=== PATIENT | male | born 1940 | race Caucasian/White ===

== ENCOUNTER → 2017-04-04 | Outpatient (CLI) | payer OTHER ==
[2017-04-04 13:23] LABS: ALT/SGPT 54 U/L (12-78); AST/SGOT 44 U/L (15-37); BLOOD UREA NITROGEN 14 mg/dl (7-18); BUN/CREATININE RATIO 16.5 (10-20); CALCIUM 9.3 mg/dl (8.5-10.1); CARBON DIOXIDE 29 mmol/L (21-32); CHLORIDE 107 mmol/L (98-107); CREATININE 0.82 mg/dl (0.60-1.40); GLUCOSE 96 mg/dl (70-99); POTASSIUM 3.9 mmol/L (3.5-5.1); SODIUM 143 mmol/L (136-145)
[2017-04-04 13:26] LABS: BASO % 0.6 %; BASO ABS # 0.04 K/uL (0-0.2); COMPLETE YES; EOS % 6.7 %; HEMATOCRIT 41.8 % (42-52); IG% 0.3 %; LYMPH ABS # 1.58 K/uL (1.2-3.4); MEAN CELL VOLUME 87.4 fL (80-100); MEAN CORPUSCULAR HEMOGLOBIN 27.8 pg (25-34); MEAN CORPUSCULAR HGB CONC 31.8 g/dl (32-36); MEAN PLATELET VOLUME 9.9 fL (7.4-10.4); MONO % 9.3 %; NEUT % 60.1 %; PLATELET COUNT 224 K/uL (130-400); RED BLOOD COUNT 4.78 M/uL (4.7-6.1); WHITE BLOOD COUNT 6.86 K/uL (4.8-10.8)
[2017-04-04 13:31] LABS: ALB/GLOB RATIO 0.9 (0.9-2); ALKALINE PHOSPHATASE 109 U/L (45-117); CHOLESTEROL 144 mg/dl (0-200); CHOLESTEROL/HDL RATIO 4.6; HDL CHOLESTEROL 31 mg/dl; LDL CHOLESTEROL CALCULATED 82 mg/dl; TRIGLYCERIDES 155 mg/dl (0-150); VERY LOW DENSITY LIPOPROT CALC 31 mg/dl
== END | disposition home or self-care (01) ==
LOC: C.LABMFLN 09:38
PROVIDERS: ATTEND Family Medicine
DX: I10 Essential (primary) hypertension (principal); E78.5 Hyperlipidemia, unspecified; E03.9 Hypothyroidism, unspecified

== ENCOUNTER 2017-07-10 23:26 | Inpatient (IN) | payer OTHER ==
[~2017-07-10] VITALS: Ht 167.6 cm; Wt 90.0 kg
--- NOTE | 2017-07-10 23:39 | EMERGENCY ROOM VISIT NOTE ---
History Report prepared by Scribe: Katelyn Singer Under the Supervision of: Dr. Oh Corrales D.O. First contact with patient: 23:24 Chief Complaint: ALTERED MENTAL STATUS Stated Complaint: ALTERED MENTAL STATUS History of Present Illness The patient is a 77 year old male who presents to the Emergency Room with complaints of altered mental status. This HPI is limited secondary to the patient's AMS. Per EMS, the patient has a history of Alzheimer. The patient has had a rapid progression of AMS recently. The patient heard loud noises and became combative. Source of History: EMS History Limited By: AMS Position: other (AMS) Quality: other (AMS) Review of Systems ROS is limited secondary to the patient's AMS. Past Medical & Surgical Medical Problems: (1) Advanced dementia (2) Delirium Current/Historical Medications Scheduled Aspirin (Aspirin Ec), 81 MG PO DAILY Atenolol (Tenormin), 25 MG PO DAILY Atorvastatin (Lipitor), 10 MG PO DAILY Clopidogrel (Plavix), 75 MG PO DAILY Fluoxetine (Prozac), 20 MG PO Q12 Levothyroxine Sodium (Levothyroxine Sodium), 1 TAB PO DAILY Memantine (Namenda), 10 MG PO Q12 Pantoprazole (Protonix), 40 MG PO DAILY Sennosides-Docusate Sodium (Senna Plus), 1 TAB PO HS Scheduled PRN Acetaminophen (Tylenol), 1 TAB PO Q4 PRN for UNDECIDED Docusate Sodium (Docusate Sodium), 1 CAP PO BID PRN for Constipation Lorazepam (Ativan), 0.5 MG PO Q6H PRN for Anxiety Tramadol (Ultram), 50 MG PO Q4H PRN for Pain Allergies Coded Allergies: No Known Allergies (Unverified , 07/11/17) Physical Exam Vital Signs Date Time Temp Pulse Resp B/P (MAP) Pulse Ox O2 Delivery O2 Flow Rate FiO2 07/11/17 00:46 72 159/99 07/11/17 00:22 99 Room Air 07/11/17 00:22 99 Room Air 07/11/17 00:14 71 07/10/17 23:40 36.8 78 16 165/98 96 Room Air 07/10/17 23:33 76 165/94 Physical Exam GENERAL: Awake, alert, well-appearing, in no distress HENT: Normocephalic, atraumatic. Oropharynx unremarkable. EYES: Normal conjunctiva. Sclera non-icteric. NECK: Supple. No nuchal rigidity. FROM. No JVD. RESPIRATORY: Clear to auscultation. CARDIAC: Regular rate, normal rhythm. Extremities warm and well perfused. Pulses equal. ABDOMEN: Soft, non-distended. No tenderness to palpation. No rebound or guarding. No masses. RECTAL: Deferred. MUSCULOSKELETAL: Chest examination reveals no tenderness. The back is symmetrical on inspection without obvious abnormality. There is no CVA tenderness to palpation. No joint edema. LOWER EXTREMITIES: Calves are equal size bilaterally and non-tender. No edema. No discoloration. NEURO: Normal sensorium. No sensory or motor deficits noted. SKIN: No rash or jaundice noted. Medical Decision & Procedures Laboratory Results 07/11/17 00:10 Red Blood Count 4.79, Mean Corpuscular Volume 84.3, Mean Corpuscular Hemoglobin 28.2, Mean Corpuscular Hemoglobin Concent 33.4, Mean Platelet Volume 9.6, Neutrophils (%) (Auto) 50.8, Lymphocytes (%) (Auto) 35.6, Monocytes (%) (Auto) 9.5, Eosinophils (%) (Auto) 3.4, Basophils (%) (Auto) 0.7, Neutrophils # (Auto) 3.86, Lymphocytes # (Auto) 2.70, Monocytes # (Auto) 0.72, Eosinophils # (Auto) 0.26, Basophils # (Auto) 0.05 07/11/17 00:10 Test 07/10/17 23:30 07/11/17 00:10 Urine Color YELLOW Urine Appearance CLEAR (CLEAR) Urine pH 6.0 (4.5-7.5) Urine Specific [place] 1.022 (1.000-1.030) Urine Protein NEG (NEG) Urine Glucose (UA) NEG (NEG) Urine Ketones NEG (NEG) Urine Occult Blood NEG (NEG) Urine Nitrite NEG (NEG) Urine Bilirubin NEG (NEG) Urine Urobilinogen NEG (NEG) Urine Leukocyte Esterase NEG (NEG) White Blood Count 7.59 K/uL (4.8-10.8) Red Blood Count 4.79 M/uL (4.7-6.1) Hemoglobin 13.5 g/dL (14.0-18.0) Hematocrit 40.4 % (42-52) Mean Corpuscular Volume 84.3 fL (80-100) Mean Corpuscular Hemoglobin 28.2 pg (25-34) Mean Corpuscular Hemoglobin Concent 33.4 g/dl (32-36) Platelet Count 200 K/uL (130-400) Mean Platelet Volume 9.6 fL (7.4-10.4) Neutrophils (%) (Auto) 50.8 % Lymphocytes (%) (Auto) 35.6 % Monocytes (%) (Auto) 9.5 % Eosinophils (%) (Auto) 3.4 % Basophils (%) (Auto) 0.7 % Neutrophils # (Auto) 3.86 K/uL (1.4-6.5) Lymphocytes # (Auto) 2.70 K/uL (1.2-3.4) Monocytes # (Auto) 0.72 K/uL (0.11-0.59) Eosinophils # (Auto) 0.26 K/uL (0-0.5) Basophils # (Auto) 0.05 K/uL (0-0.2) RDW Standard Deviation 43.4 fL (36.4-46.3) RDW Coefficient of Variation 14.0 % (11.5-14.5) Immature Granulocyte % (Auto) 0.0 % Immature Granulocyte # (Auto) 0.00 K/uL (0.00-0.02) Anion Gap 8.0 mmol/L (3-11) Est Creatinine Clear Calc Drug Dose 75.6 ml/min Estimated GFR () 96.9 Estimated GFR (Non- 83.6 BUN/Creatinine Ratio 21.5 (10-20) Calcium Level 9.2 mg/dl (8.5-10.1) Magnesium Level 2.1 mg/dl (1.8-2.4) Total Bilirubin 0.7 mg/dl (0.2-1) Direct Bilirubin 0.1 mg/dl (0-0.2) Aspartate Amino Transf (AST/SGOT) 25 U/L (15-37) Alanine Aminotransferase (ALT/SGPT) 32 U/L (12-78) Alkaline Phosphatase 113 U/L (45-117) Total Protein 8.4 gm/dl (6.4-8.2) Albumin 3.7 gm/dl (3.4-5.0) Laboratory results reviewed by me Medications Administered Medications (Trade) Dose Ordered Sig/Wilfrid Route Start Time Stop Time Status Last Admin Dose Admin Lorazepam (Ativan Inj) 1 mg NOW STAT IV 07/11/17 00:30 07/11/17 00:32 DC 07/11/17 00:36 1 MG ED Course 2324: The patient was evaluated in room A10. A complete history and physical exam was performed. 2336: I reevaluated the patient. Discussed results and discharge instructions. The patient is ready for discharge. 0140: [facility]. The patient will be evaluated by Dr. Hopper, Hospitalist for further evaluation. Medical Decision Differential diagnoses include but are not limited to; Dementia, UTI, viral syndrome, deconditioning. Patient is alert follows commands is not combative has no current alteration mental status is alert and oriented 4. Patient's urine just was negative so I do not suspect infection as an etiologies afebrile. Patient is in a dementia unit and will be returned for further care; the rehabilitation Center would not take the patient back, the patient was medically cleared for admission for likely placement at a dementia unit. Case was discussed with the hospitalist for admission Medication Reconcilliation Current Medication List: was personally reviewed by me Impression Primary Impression: Dementia Scribe Attestation The scribe's documentation has been prepared under my direction and personally reviewed by me in its entirety. I confirm that the note above accurately reflects all work, treatment, procedures, and medical decision making performed by me. Departure Information Dispostion Home / Self-Care Referrals Yessi Leyva M.D. (PCP) Patient Instructions Dementia, My [facility]
[2017-07-11 00:08] LABS: URINE APPEARANCE CLEAR (CLEAR); URINE BILIRUBIN NEG (NEG); URINE COLOR YELLOW; URINE NITRITE NEG (NEG); URINE SPECIFIC GRAVITY 1.022 (1.000-1.030); UROBILINOGEN NEG (NEG)
[2017-07-11 00:09] LABS: MANUAL MICROSCOPIC REQUIRED? NO; REVIEW REQ? NO
[2017-07-11 00:25] LABS: BASO % 0.7 %; BASO ABS # 0.05 K/uL (0-0.2); COMPLETE YES; EOS % 3.4 %; HEMATOCRIT 40.4 % (42-52); LYMPH % 35.6 %; MEAN CELL VOLUME 84.3 fL (80-100); MEAN CORPUSCULAR HEMOGLOBIN 28.2 pg (25-34); MEAN CORPUSCULAR HGB CONC 33.4 g/dl (32-36); MEAN PLATELET VOLUME 9.6 fL (7.4-10.4); MONO % 9.5 %; NEUT % 50.8 %; PLATELET COUNT 200 K/uL (130-400); RED BLOOD COUNT 4.79 M/uL (4.7-6.1); WHITE BLOOD COUNT 7.59 K/uL (4.8-10.8)
[2017-07-11] MEDS ORDERED: LORAZEPAM 2 MG/ML 1 ML VIAL IV STA (00:30)
[2017-07-11 00:42] LABS: BUN/CREATININE RATIO 21.5 (10-20); CALCIUM 9.2 mg/dl (8.5-10.1); CREATININE 0.86 mg/dl (0.60-1.40); MAGNESIUM 2.1 mg/dl (1.8-2.4); POTASSIUM 3.9 mmol/L (3.5-5.1)
[2017-07-11] MEDS ORDERED: FLUO20CA35 PO (00:54)
[2017-07-11] MEDS ORDERED: CLOP1TAB15 PO (00:54)
[2017-07-11] MEDS ORDERED: PANT40TA PO (00:54)
[2017-07-11] MEDS ORDERED: LEVO100T7 PO (00:54)
[2017-07-11] MEDS ORDERED: NMN10 PO (00:54)
[2017-07-11] MEDS ORDERED: ATEN-173 PO (00:54)
[2017-07-11] MEDS ORDERED: ATOR10TA82 PO (00:54)
[2017-07-11] MEDS ORDERED: ASPI81TA28 PO (00:54)
[2017-07-11] MEDS ORDERED: ACET-1256 PO (01:15)
[2017-07-11] MEDS ORDERED: TRAM-10 PO (01:15)
[2017-07-11] MEDS ORDERED: DOCU100C31 PO (01:15)
[2017-07-11] MEDS ORDERED: SENN1TAB65 PO (01:15)
[2017-07-11] MEDS ORDERED: LORA-741 PO (01:15)
[2017-07-11] MEDS ORDERED: ACETAMINOPHEN 325 MG TAB PO PRN (01:30)
[2017-07-11] MEDS ORDERED: TRAMADOL HCL 50 MG TAB PO PRN (01:30)
[2017-07-11] MEDS ORDERED: LORAZEPAM 0.5 MG TAB PO PRN (01:30)
[2017-07-11] MEDS ORDERED: ONDANSETRON INJ 2 MG/ML 2 ML VIAL IV PRN (01:30)
[2017-07-11] MEDS ORDERED: DOCUSATE SODIUM 100 MG CAP PO PRN (01:30)
[2017-07-11] MEDS ORDERED: HALOPERIDOL LACTATE 5 MG/ML 1 ML VIAL IM PRN (01:45)
[2017-07-11 03:11] VITALS: BP 172/98; PULSE 70; TEMP 36.6; O2SAT 92; Ht 167.6 cm; Wt 90.0 kg
[2017-07-11] MEDS ORDERED: IV FLUIDS COMPLETED PRN (03:30)
--- NOTE | 2017-07-11 03:55 | History and Physical ---
History & Physical Date & Time of Service: Jul 11, 2017 at 01:38 Chief Complaint: Altered Mental Status Primary Care Physician: Yessi Leyva M.D. History of Present Illness Source: patient, clinic records Mr Everett is a 77 year old male with Alzheimer's disease who presents to the ER from [facility] after becoming combative with staff. He was recently discharged from [facility] to [facility] with a primary diagnosis on discharge of advanced dementia. When seen the patient had been given Ativan in the ER as he was starting to becoming combative with staff. He was sleeping and unable to wake him up to provide a history. On review of outpatient records he has a diagnosis of Alzheimer's disease and was last nicanor by neurology in February 2017. At that time he was able to recall 2/3 objects in 5 minutes. He is and lives alone as her PCP note from November 2016 Past Medical/Surgical History Alzheimer's Dementia Atrial fibrillation Benign essential hypertension Coronary Artery Disease Hypothyroidism GERD Hyperlipidemia Obstructive Sleep apnea Social History Smoking Status: Never Smoker Marital Status: Housing status: lives alone Occupational Status: retired Allergies Coded Allergies: No Known Allergies (Unverified , 07/11/17) Home Medications Scheduled Aspirin (Aspirin Ec), 81 MG PO DAILY Atenolol (Tenormin), 25 MG PO DAILY Atorvastatin (Lipitor), 10 MG PO DAILY Clopidogrel (Plavix), 75 MG PO DAILY Fluoxetine (Prozac), 20 MG PO Q12 Levothyroxine Sodium (Levothyroxine Sodium), 1 TAB PO DAILY Memantine (Namenda), 10 MG PO Q12 Pantoprazole (Protonix), 40 MG PO DAILY Sennosides-Docusate Sodium (Senna Plus), 1 TAB PO HS Scheduled PRN Acetaminophen (Tylenol), 1 TAB PO Q4 PRN for UNDECIDED Docusate Sodium (Docusate Sodium), 1 CAP PO BID PRN for Constipation Lorazepam (Ativan), 0.5 MG PO Q6H PRN for Anxiety Tramadol (Ultram), 50 MG PO Q4H PRN for Pain Review of Systems Unable to review systems due to patient cognition Physical Exam Vital Signs Date Time Temp Pulse Resp B/P (MAP) Pulse Ox O2 Delivery O2 Flow Rate FiO2 07/11/17 00:46 72 159/99 07/11/17 00:22 99 Room Air 07/11/17 00:22 99 Room Air 07/11/17 00:14 71 07/10/17 23:40 36.8 78 16 165/98 96 Room Air 07/10/17 23:33 76 165/94 General Appearance: WD/WN, no apparent distress Head: normocephalic, atraumatic Eyes: normal inspection ENT: pharynx normal Respiratory/Chest: normal breath sounds, no respiratory distress, no accessory muscle use Cardiovascular: regular rate, rhythm, no murmur, normal peripheral pulses Abdomen/GI: normal bowel sounds, non tender, soft Extremities/Musculoskelatal: normal capillary refill, no pedal edema Neurologic/Psych: + pertinent finding (sleeping unable to wake, reportedly moving all 4 limbs equally and mobile before ativan, no facial droop) Skin: normal color, warm/dry, no rash Diagnostics Laboratory Results Results Past 24 Hours Test 07/10/17 23:30 07/11/17 00:10 Range/Units Urine Color YELLOW Urine Appearance CLEAR CLEAR Urine pH 6.0 4.5-7.5 Urine Specific [place] 1.022 1.000-1.030 Urine Protein NEG NEG Urine Glucose (UA) NEG NEG Urine Ketones NEG NEG Urine Occult Blood NEG NEG Urine Nitrite NEG NEG Urine Bilirubin NEG NEG Urine Urobilinogen NEG NEG Urine Leukocyte Esterase NEG NEG White Blood Count 7.59 4.8-10.8 K/uL Red Blood Count 4.79 4.7-6.1 M/uL Hemoglobin 13.5 14.0-18.0 g/dL Hematocrit 40.4 42-52 % Mean Corpuscular Volume 84.3 80-100 fL Mean Corpuscular Hemoglobin 28.2 25-34 pg Mean Corpuscular Hemoglobin Concent 33.4 32-36 g/dl Platelet Count 200 130-400 K/uL Mean Platelet Volume 9.6 7.4-10.4 fL Neutrophils (%) (Auto) 50.8 % Lymphocytes (%) (Auto) 35.6 % Monocytes (%) (Auto) 9.5 % Eosinophils (%) (Auto) 3.4 % Basophils (%) (Auto) 0.7 % Neutrophils # (Auto) 3.86 1.4-6.5 K/uL Lymphocytes # (Auto) 2.70 1.2-3.4 K/uL Monocytes # (Auto) 0.72 0.11-0.59 K/uL Eosinophils # (Auto) 0.26 0-0.5 K/uL Basophils # (Auto) 0.05 0-0.2 K/uL RDW Standard Deviation 43.4 36.4-46.3 fL RDW Coefficient of Variation 14.0 11.5-14.5 % Immature Granulocyte % (Auto) 0.0 % Immature Granulocyte # (Auto) 0.00 0.00-0.02 K/uL Sodium Level 137 136-145 mmol/L Potassium Level 3.9 3.5-5.1 mmol/L Chloride Level 104 98-107 mmol/L Carbon Dioxide Level 25 21-32 mmol/L Anion Gap 8.0 3-11 mmol/L Blood Urea Nitrogen 18 7-18 mg/dl Creatinine 0.86 0.60-1.40 mg/dl Est Creatinine Clear Calc Drug Dose 75.6 ml/min Estimated GFR () 96.9 Estimated GFR (Non- 83.6 BUN/Creatinine Ratio 21.5 10-20 Random Glucose 95 70-99 mg/dl Calcium Level 9.2 8.5-10.1 mg/dl Magnesium Level 2.1 1.8-2.4 mg/dl Total Bilirubin 0.7 0.2-1 mg/dl Direct Bilirubin 0.1 0-0.2 mg/dl Aspartate Amino Transf (AST/SGOT) 25 15-37 U/L Alanine Aminotransferase (ALT/SGPT) 32 12-78 U/L Alkaline Phosphatase 113 45-117 U/L Total Protein 8.4 6.4-8.2 gm/dl Albumin 3.7 3.4-5.0 gm/dl Impression Assessment and Plan 77 year old male with Alzheimer's admission for combative state after recent discharge from [facility] for advanced dementia. Delirium on background of advanced dementia - Haldol IM or PO PRN if patient at risk to self or others - notes requested from [place] - discharge planning to dementia unit Coronary artery disease - ASA, Clopidogrel, Atenolol, atorvastatin Alzheimer's disease - continue memantine Hypothyroidism - continue levothyroxine Depression - continue fluoxetine Resident Physician Supervision Note: I was present with Dr. Pena during the history and exam. I discussed the case with the resident and agree with the findings and plan as documented in the note. Any exceptions or clarifications are listed here: 77 y/o M Hx Alzheimer's dementia, CAD, hypothyroidism Pt was placed at [facility] one day prior, however, his behavior has been erratic and he was sent to the ER for relocation to an Alzheimer's unit. It is unclear why they had accepted him initialy as his histrory was documented prior to placement. OE Pt sedated at time of evaluation S1,2 R CTAB - poor effort NT, ND No CCE P: Case management consulted to explore placement options Cont current meds Documented By: Bonilla Hopper Level of Care Med/Surg Advanced Directives Existing Advance Directive: Yes (as per [facility]) Resuscitation Status FULL RESUSCITATION (as per [place] discharge notes) VTE Prophylaxis VTE Risk Assessment Done? Y/N: Yes Risk Level: Moderate Given or contraindicated: Treatment not indicated (social admission) Additional Copies To Yessi Leyva M.D. Resident Tracking Resident Involvement: Resident Care Provided Care Provided: Adult Hospital Medicine
[2017-07-11] MEDS: LEVOTHYROXINE 100 MCG TAB PO SCH (06:00)
--- NOTE | 2017-07-11 06:40 | Family Medicine Progress Note ---
Progress Note Date of Service Jul 11, 2017. Subjective Pt evaluation today including: chart review, lab review, review of inpatient medication list Unable to obtain a subjective history from the patient He is extremely sedated from the ativan that he received in the ED Does respond to pain Medications Medications Administered Medications (Trade) Dose Ordered Sig/Wilfrid Route Start Time Stop Time Status Last Admin Dose Admin Lorazepam (Ativan Inj) 1 mg NOW STAT IV 07/11/17 00:30 07/11/17 00:32 DC 07/11/17 00:36 1 MG Lorazepam (Ativan Tab) 0.5 mg Q6H PRN PO 07/11/17 01:30 08/10/17 01:29 07/11/17 06:19 0.5 MG Objective Physical Exam General Appearance: no apparent distress Eyes: normal inspection ENT: normal ENT inspection Neck: supple Respiratory/Chest: normal breath sounds, no respiratory distress, no accessory muscle use Cardiovascular: regular rate, rhythm, no murmur Abdomen: normal bowel sounds, non tender, soft Extremities: no pedal edema Neurologic/Psychiatric: + pertinent finding (sedated) Skin: normal color, warm/dry, no rash Lymphatic: no adenopathy Laboratory Results Results Past 24 Hours Test 07/10/17 23:30 07/11/17 00:10 07/11/17 06:45 Range/Units Urine Color YELLOW Urine Appearance CLEAR CLEAR Urine pH 6.0 4.5-7.5 Urine Specific [place] 1.022 1.000-1.030 Urine Protein NEG NEG Urine Glucose (UA) NEG NEG Urine Ketones NEG NEG Urine Occult Blood NEG NEG Urine Nitrite NEG NEG Urine Bilirubin NEG NEG Urine Urobilinogen NEG NEG Urine Leukocyte Esterase NEG NEG White Blood Count 7.59 4.8-10.8 K/uL Red Blood Count 4.79 4.7-6.1 M/uL Hemoglobin 13.5 14.0-18.0 g/dL Hematocrit 40.4 42-52 % Mean Corpuscular Volume 84.3 80-100 fL Mean Corpuscular Hemoglobin 28.2 25-34 pg Mean Corpuscular Hemoglobin Concent 33.4 32-36 g/dl Platelet Count 200 130-400 K/uL Mean Platelet Volume 9.6 7.4-10.4 fL Neutrophils (%) (Auto) 50.8 % Lymphocytes (%) (Auto) 35.6 % Monocytes (%) (Auto) 9.5 % Eosinophils (%) (Auto) 3.4 % Basophils (%) (Auto) 0.7 % Neutrophils # (Auto) 3.86 1.4-6.5 K/uL Lymphocytes # (Auto) 2.70 1.2-3.4 K/uL Monocytes # (Auto) 0.72 0.11-0.59 K/uL Eosinophils # (Auto) 0.26 0-0.5 K/uL Basophils # (Auto) 0.05 0-0.2 K/uL RDW Standard Deviation 43.4 36.4-46.3 fL RDW Coefficient of Variation 14.0 11.5-14.5 % Immature Granulocyte % (Auto) 0.0 % Immature Granulocyte # (Auto) 0.00 0.00-0.02 K/uL Sodium Level 137 136-145 mmol/L Potassium Level 3.9 3.5-5.1 mmol/L Chloride Level 104 98-107 mmol/L Carbon Dioxide Level 25 21-32 mmol/L Anion Gap 8.0 3-11 mmol/L Blood Urea Nitrogen 18 7-18 mg/dl Creatinine 0.86 0.60-1.40 mg/dl Est Creatinine Clear Calc Drug Dose 75.6 ml/min Estimated GFR () 96.9 Estimated GFR (Non- 83.6 BUN/Creatinine Ratio 21.5 10-20 Random Glucose 95 70-99 mg/dl Calcium Level 9.2 8.5-10.1 mg/dl Magnesium Level 2.1 2.1 1.8-2.4 mg/dl Total Bilirubin 0.7 0.2-1 mg/dl Direct Bilirubin 0.1 0-0.2 mg/dl Aspartate Amino Transf (AST/SGOT) 25 15-37 U/L Alanine Aminotransferase (ALT/SGPT) 32 12-78 U/L Alkaline Phosphatase 113 45-117 U/L Total Protein 8.4 6.4-8.2 gm/dl Albumin 3.7 3.4-5.0 gm/dl Thyroid Stimulating Hormone (TSH) 4.320 0.300-4.500 uIu/ml Assessment and Plan 77 year old male with Alzheimer's admission for combative state after recent discharge from [facility] for advanced dementia. The patient is currently awaiting placement in a dementia unit Delirium secondary to Advanced Dementia; Alzheimer's - Haldol IM or PO PRN if patient at risk to self or others - Preference to use 0.5 mg Risperdal prior to the - notes requested from [facility], pending - discharge planning to dementia unit, case management aware - continue Memantine HTN - continue atenolol 25 mg - Hdralazine 5 mg q 6 h prn for systolic > 180 Coronary artery disease- stable - ASA, Clopidogrel, Atenolol, atorvastatin 10 mg cont'd Hypothyroidism - continue levothyroxine 100 mcg - TSH repeat to assess if under/ over treatment could be contributing to delirium Depression - continue fluoxetine 20 mg bid DVT prophylaxis heparin bid scd Continued [facility] stay due to: other Discharge planning: jail facility Assessment/Plan Resident Physician Supervision Note: I was present with Dr. Rea during the history and exam. I discussed the case with the resident and agree with the findings and plan as documented in the note. Any exceptions or clarifications are listed here. 77 y/o male with h/o Alzheimer's dementia who was functionally dependent until last week presents with acute decompensation of mental status from [facility] following inpatient stay at [facility]. Presently AAOx0 but answering questions appropriately in the moment. Reports no pain, sensory changes, alimentary complaints or rashes, fevers. S1/S2 nl RRR no MCG, CTAB. For delirium, the patient is likely still recovering from recent lorazepam bolus but should remain under assist with frequent reorientation and monitoring until baseline mental status returns. Can use haldol if significant disturbance. Would obtain records of w/u of this from previous hospitalization. Regarding elevated BP, would continue PO atenolol and consider addition of PEDRO- I if no improvement. Maintain PO medications for chronic disease as noted above.
[2017-07-11 06:57] VITALS: BP 214/100; PULSE 66; TEMP 36.4; O2SAT 98
[2017-07-11] MEDS ORDERED: HydrALAZINE HCL 20 MG/ML VIAL ONE (07:08)
[2017-07-11] MEDS ORDERED: HydrALAZINE HCL 20 MG/ML VIAL IV. PRN (07:15)
[2017-07-11 07:51] LABS: MAGNESIUM 2.1 mg/dl (1.8-2.4); THYROID STIMULATING HORMONE 4.32 uIu/ml (0.300-4.500)
[2017-07-11] MEDS ORDERED: FLUOXETINE HCL 20 MG CAP PO SCH (09:00)
[2017-07-11] MEDS: ASPIRIN 81 MG ECTAB PO SCH (09:00)
[2017-07-11] MEDS: MEMANTINE 10 MG TAB PO SCH ×2 (09:02→21:03)
[2017-07-11] MEDS: PANTOprazole SOD 40 MG TAB PO SCH (09:04)
[2017-07-11] MEDS: CLOPIDOGREL BISULFATE 75 MG TAB PO SCH (09:04)
[2017-07-11] MEDS: ATORVASTATIN 10 MG TAB PO SCH (09:04)
[2017-07-11 09:09] VITALS: BP 174/90
[2017-07-11 10:15] VITALS: BP 137/92
[2017-07-11 13:46] LABS: PROTHROMBIN TIME (PATIENT) 10.9 SECONDS (9.0-12.0)
[2017-07-11 15:01] VITALS: BP 147/75; PULSE 67; TEMP 36.5; O2SAT 93
[2017-07-11] MEDS: RISPERIDONE 0.5 MG TAB PO PRN (20:14)
[2017-07-11] MEDS: HEPARIN SOD 5000 UNIT/0.5 ML CARP SQ SCH (21:00)
[2017-07-11] MEDS: DOCUSATE SODIUM/SENNA 50/8.6MG TAB PO SCH (21:00)
[2017-07-11 23:40] VITALS: BP 142/84; PULSE 78; TEMP 36.8; O2SAT 95
[2017-07-12] MEDS: LEVOTHYROXINE 100 MCG TAB PO SCH (05:58)
--- NOTE | 2017-07-12 07:29 | Family Medicine Progress Note ---
Progress Note Date of Service Jul 12, 2017. Subjective Pt evaluation today including: conversation w/ patient, physical exam, chart review, lab review, review of studies Additional Comments: unable to obtain ROS due to pt mental status Medications Current Inpatient Medications Medications (Trade) Dose Ordered Sig/Wilfrid Route Start Time Stop Time Status Last Admin Dose Admin Acetaminophen (Tylenol Tab) 650 mg Q4H PRN PO 07/11/17 01:30 08/10/17 01:29 Ondansetron HCl (Zofran Inj) 4 mg Q6H PRN IV 07/11/17 01:30 08/10/17 01:29 Aspirin (Ecotrin Tab) 81 mg DAILY PO 07/11/17 09:00 08/10/17 08:59 07/11/17 09:00 81 MG Atenolol (Tenormin Tab) 25 mg DAILY PO 07/11/17 09:00 08/10/17 08:59 07/11/17 09:02 25 MG Atorvastatin Calcium (Lipitor Tab) 10 mg DAILY PO 07/11/17 09:00 08/10/17 08:59 07/11/17 09:04 10 MG Clopidogrel Bisulfate (plAVix TAB) 75 mg DAILY PO 07/11/17 09:00 08/10/17 08:59 07/11/17 09:04 75 MG Docusate Sodium (coLACE CAP) 100 mg BID PRN PO 07/11/17 01:30 08/10/17 01:29 Levothyroxine Sodium (Synthroid Tab) 100 mcg DAILYBB PO 07/11/17 06:00 08/10/17 05:59 07/12/17 05:58 100 MCG Lorazepam (Ativan Tab) 0.5 mg Q6H PRN PO 07/11/17 01:30 08/10/17 01:29 Future Hold 07/11/17 06:19 0.5 MG Memantine (Namenda Tab) 10 mg Q12 PO 07/11/17 09:00 08/10/17 08:59 07/11/17 21:03 10 MG Pantoprazole Sodium (Protonix Tab) 40 mg DAILY PO 07/11/17 09:00 08/10/17 08:59 07/11/17 09:04 40 MG Senna/Docusate Sodium (Senokot S Tab) 1 tab HS PO 07/11/17 21:00 08/10/17 20:59 Tramadol HCl (Ultram Tab) 50 mg Q4H PRN PO 07/11/17 01:30 08/10/17 01:29 Haloperidol Lactate (Haldol Inj) 2.5 mg DAILY PRN IM 07/11/17 01:45 08/10/17 01:44 Haloperidol (Haldol Tab) 1 mg DAILY PRN PO 07/11/17 01:45 08/10/17 01:44 Miscellaneous (Iv Fluids Completed) 1 ea PRN PRN N/A 07/11/17 03:30 07/11/18 03:29 Hydralazine HCl (HydrALAZINE INJ) 5 mg Q6H PRN IV. 07/11/17 07:15 08/10/17 07:14 Risperidone (Risperdal Tab) 0.5 mg DAILY PRN PO 07/11/17 12:00 08/10/17 11:59 07/11/17 20:14 0.5 MG Heparin Sodium (Porcine) (Heparin Sq 5000 Unit/0.5ml) 5,000 unit Q12 SQ 07/11/17 21:00 08/10/17 20:59 Fluoxetine HCl (Prozac Cap) 20 mg DAILY PO 07/12/17 09:00 08/10/17 08:59 Objective Vital Signs Date Time Temp Pulse Resp B/P (MAP) Pulse Ox O2 Delivery O2 Flow Rate FiO2 07/11/17 23:40 36.8 78 22 142/84 (103) 95 Room Air 07/11/17 23:21 Room Air 07/11/17 16:20 Room Air 07/11/17 15:01 36.5 67 18 147/75 (99) 93 Room Air 07/11/17 10:15 137/92 (107) 07/11/17 09:09 174/90 (118) Physical Exam General Appearance: WD/WN, no apparent distress Respiratory/Chest: chest non-tender, lungs clear, normal breath sounds, no respiratory distress, no accessory muscle use Cardiovascular: regular rate, rhythm, no edema, no gallop, no JVD, no murmur Abdomen: normal bowel sounds, non tender, soft, no organomegaly Skin: normal color, warm/dry, no rash Laboratory Results Test 07/11/17 13:20 07/12/17 04:44 Prothrombin Time 10.9 SECONDS (9.0-12.0) Prothromb Time International Ratio 1.0 (0.9-1.1) Assessment and Plan 77 year old male with Alzheimer's admission for combative state after recent discharge from [facility] for advanced dementia. The patient is currently awaiting placement in a dementia unit Delirium secondary to Advanced Dementia; Alzheimer's - Haldol IM or PO PRN if patient at risk to self or others - Preference to use 0.5 mg Risperdal prior to the - notes requested from [place] [facility], pending - discharge planning to dementia unit, case management aware - continue Memantine HTN - continue atenolol 25 mg - Hdralazine 5 mg q 6 h prn for systolic > 180 Coronary artery disease- stable - ASA, Clopidogrel, Atenolol, atorvastatin 10 mg cont'd Hypothyroidism - continue levothyroxine 100 mcg - TSH repeat to assess if under/ over treatment could be contributing to delirium Depression - continue fluoxetine 20 mg bid DVT prophylaxis heparin bid scd Continued [facility] stay due to: other Discharge planning: snf facility Assessment/Plan Resident Physician Supervision Note: I was present with Dr. Shaw during the history and exam. I discussed the case with the resident and agree with the findings and plan as documented in the note. Any exceptions or clarifications are listed here. 77 y/o male with h/o Alzheimer's dementia who was functionally dependent until last week presents with acute decompensation of mental status from [facility] following inpatient stay at [facility]. AAOx0 and physically agitated without aggression, confused about location and time. Reports no pain, sensory changes, alimentary complaints or rashes, fevers. S1/S2 nl RRR no MCG, CTAB. Pt would definitely benefit from 1:1 with frequent reorientation and monitoring , with haldol if there is significant disturbance. Elevated BP has improved and so will continue atenolol. Maintain PO medications for chronic disease as noted above. Awaiting placement to outpatient facility, needs 3 MN, despite recent admit to [facility]
[2017-07-12 07:37] VITALS: BP 149/92; PULSE 76; TEMP 36.7; O2SAT 94
[2017-07-12 08:23] LABS: BASO % 0.7 %; BASO ABS # 0.05 K/uL (0-0.2); COMPLETE YES; EOS % 3.6 %; HEMATOCRIT 40.3 % (42-52); IG% 0.3 %; LYMPH % 24.5 %; LYMPH ABS # 1.88 K/uL (1.2-3.4); MEAN CELL VOLUME 84.7 fL (80-100); MEAN CORPUSCULAR HEMOGLOBIN 28.4 pg (25-34); MEAN CORPUSCULAR HGB CONC 33.5 g/dl (32-36); MEAN PLATELET VOLUME 9.8 fL (7.4-10.4); MONO % 7.7 %; NEUT % 63.2 %; PLATELET COUNT 189 K/uL (130-400); RED BLOOD COUNT 4.76 M/uL (4.7-6.1); WHITE BLOOD COUNT 7.68 K/uL (4.8-10.8)
[2017-07-12] MEDS: RISPERIDONE 0.5 MG TAB PO PRN (08:33)
[2017-07-12 08:59] LABS: BUN/CREATININE RATIO 19.6 (10-20); CALCIUM 9.5 mg/dl (8.5-10.1); CREATININE 0.8 mg/dl (0.60-1.40); POTASSIUM 3.8 mmol/L (3.5-5.1)
[2017-07-12] MEDS: HEPARIN SOD 5000 UNIT/0.5 ML CARP SQ SCH ×2 (09:00→21:00)
[2017-07-12] MEDS: ASPIRIN 81 MG ECTAB PO SCH (09:23)
[2017-07-12] MEDS: MEMANTINE 10 MG TAB PO SCH ×2 (09:24→20:59)
[2017-07-12] MEDS: PANTOprazole SOD 40 MG TAB PO SCH (09:29)
[2017-07-12] MEDS: FLUOXETINE HCL 20 MG CAP PO SCH (09:30)
[2017-07-12] MEDS: CLOPIDOGREL BISULFATE 75 MG TAB PO SCH (11:50)
[2017-07-12] MEDS: ATORVASTATIN 10 MG TAB PO SCH (11:51)
[2017-07-12 14:54] VITALS: BP 113/75; PULSE 70; TEMP 36.7; O2SAT 94
[2017-07-12] MEDS: DOCUSATE SODIUM/SENNA 50/8.6MG TAB PO SCH (21:00)
[2017-07-12 22:52] VITALS: BP 164/89; PULSE 62; TEMP 36.4; O2SAT 93
--- NOTE | 2017-07-13 08:02 | Family Medicine Progress Note ---
Progress Note Date of Service Jul 13, 2017. Subjective Additional Comments: unable to obtain pt's ROS due to mental status Medications Current Inpatient Medications Medications (Trade) Dose Ordered Sig/Wilfrid Route Start Time Stop Time Status Last Admin Dose Admin Acetaminophen (Tylenol Tab) 650 mg Q4H PRN PO 07/11/17 01:30 08/10/17 01:29 Ondansetron HCl (Zofran Inj) 4 mg Q6H PRN IV 07/11/17 01:30 08/10/17 01:29 Aspirin (Ecotrin Tab) 81 mg DAILY PO 07/11/17 09:00 08/10/17 08:59 07/13/17 08:39 81 MG Atenolol (Tenormin Tab) 25 mg DAILY PO 07/11/17 09:00 08/10/17 08:59 07/13/17 08:40 25 MG Atorvastatin Calcium (Lipitor Tab) 10 mg DAILY PO 07/11/17 09:00 08/10/17 08:59 07/13/17 08:39 10 MG Clopidogrel Bisulfate (plAVix TAB) 75 mg DAILY PO 07/11/17 09:00 08/10/17 08:59 07/13/17 08:39 75 MG Docusate Sodium (coLACE CAP) 100 mg BID PRN PO 07/11/17 01:30 08/10/17 01:29 Levothyroxine Sodium (Synthroid Tab) 100 mcg DAILYBB PO 07/11/17 06:00 08/10/17 05:59 07/13/17 11:18 100 MCG Lorazepam (Ativan Tab) 0.5 mg Q6H PRN PO 07/11/17 01:30 08/10/17 01:29 Future Hold 07/11/17 06:19 0.5 MG Memantine (Namenda Tab) 10 mg Q12 PO 07/11/17 09:00 08/10/17 08:59 07/13/17 08:39 10 MG Pantoprazole Sodium (Protonix Tab) 40 mg DAILY PO 07/11/17 09:00 08/10/17 08:59 07/13/17 08:40 40 MG Senna/Docusate Sodium (Senokot S Tab) 1 tab HS PO 07/11/17 21:00 08/10/17 20:59 Tramadol HCl (Ultram Tab) 50 mg Q4H PRN PO 07/11/17 01:30 08/10/17 01:29 Haloperidol Lactate (Haldol Inj) 2.5 mg DAILY PRN IM 07/11/17 01:45 08/10/17 01:44 Haloperidol (Haldol Tab) 1 mg DAILY PRN PO 07/11/17 01:45 08/10/17 01:44 Miscellaneous (Iv Fluids Completed) 1 ea PRN PRN N/A 07/11/17 03:30 07/11/18 03:29 Hydralazine HCl (HydrALAZINE INJ) 5 mg Q6H PRN IV. 07/11/17 07:15 08/10/17 07:14 Risperidone (Risperdal Tab) 0.5 mg DAILY PRN PO 07/11/17 12:00 08/10/17 11:59 07/13/17 16:27 0.5 MG Heparin Sodium (Porcine) (Heparin Sq 5000 Unit/0.5ml) 5,000 unit Q12 SQ 07/11/17 21:00 08/10/17 20:59 Fluoxetine HCl (Prozac Cap) 20 mg DAILY PO 07/12/17 09:00 08/10/17 08:59 07/13/17 08:40 20 MG Objective Vital Signs Date Time Temp Pulse Resp B/P (MAP) Pulse Ox O2 Delivery O2 Flow Rate FiO2 07/13/17 15:10 Room Air 07/13/17 14:48 36.4 61 18 138/85 (102) 93 Room Air 07/13/17 08:25 Room Air 07/12/17 23:26 Room Air 07/12/17 22:52 36.4 62 18 164/89 (114) 93 Room Air Physical Exam General Appearance: WD/WN, + mild distress Respiratory/Chest: chest non-tender, lungs clear, normal breath sounds, no respiratory distress, no accessory muscle use Cardiovascular: regular rate, rhythm, no edema, no gallop, no JVD, no murmur Neurologic/Psychiatric: alert, normal mood/affect, oriented x 3 Skin: normal color, warm/dry, no rash Assessment and Plan 77 year old male with Alzheimer's admission for combative state after recent discharge from [facility] for advanced dementia. The patient is currently awaiting placement in a dementia unit 07/13 -Talked with case management-still working on placement. -Dced all patients labs; pt has been afebrile, WBC is wnl -Dr. Chaney spoke with family, pt's code status changed to DNR Delirium secondary to Advanced Dementia; Alzheimer's - Haldol IM or PO PRN if patient at risk to self or others - Preference to use 0.5 mg Risperdal - notes requested from [place], pending - discharge planning to dementia unit, case management aware - continue Memantine HTN - continue atenolol 25 mg - Hdralazine 5 mg q 6 h prn for systolic > 180 Coronary artery disease- stable - ASA, Clopidogrel, Atenolol, atorvastatin 10 mg cont'd Hypothyroidism - continue levothyroxine 100 mcg - TSH repeat to assess if under/ over treatment could be contributing to delirium Depression - continue fluoxetine 20 mg bid DVT prophylaxis heparin bid scd Continued [facility] stay due to: other Discharge planning: [facility] facility Assessment/Plan Resident Physician Supervision Note: I was present with Dr. Shaw during the history and exam. I discussed the case with the resident and agree with the findings and plan as documented in the note. Any exceptions or clarifications are listed here. 77 y/o male with h/o Alzheimer's dementia who was functionally dependent until last week presents with acute decompensation of mental status from [facility] following inpatient stay at [place]. Still AAOx0 but less agitated without aggression, confused about location and time. Reports no pain, sensory changes, alimentary complaints or rashes, fevers. S1/S2 nl RRR no MCG, CTAB. Continue 1:1 with frequent reorientation and monitoring, with haldol if there is significant disturbance. Continue atenolol. Maintain PO medications for chronic disease as noted above. Discussed w/ daughter, power of deck mechanic, re: code status of the patient. Per her conversations with the patient previously and expressed wishes, will make pt DNR/DNI including no aggressive ventilatory measures (such as BIPAP/CPAP) Awaiting placement to outpatient facility
[2017-07-13] MEDS: CLOPIDOGREL BISULFATE 75 MG TAB PO SCH (08:39)
[2017-07-13] MEDS: MEMANTINE 10 MG TAB PO SCH ×2 (08:39→21:25)
[2017-07-13] MEDS: ATORVASTATIN 10 MG TAB PO SCH (08:39)
[2017-07-13] MEDS: ASPIRIN 81 MG ECTAB PO SCH (08:39)
[2017-07-13] MEDS: PANTOprazole SOD 40 MG TAB PO SCH (08:40)
[2017-07-13] MEDS: FLUOXETINE HCL 20 MG CAP PO SCH (08:40)
[2017-07-13] MEDS: HEPARIN SOD 5000 UNIT/0.5 ML CARP SQ SCH ×2 (08:45→21:00)
[2017-07-13] MEDS: LEVOTHYROXINE 100 MCG TAB PO SCH (11:18)
[2017-07-13 14:48] VITALS: BP 138/85; PULSE 61; TEMP 36.4; O2SAT 93
[2017-07-13] MEDS: RISPERIDONE 0.5 MG TAB PO PRN (16:27)
[2017-07-13] MEDS: DOCUSATE SODIUM/SENNA 50/8.6MG TAB PO SCH (21:25)
[2017-07-14] MEDS: LEVOTHYROXINE 100 MCG TAB PO SCH (06:21)
[2017-07-14 07:09] VITALS: BP 170/72; PULSE 70; TEMP 36.7; O2SAT 93
[2017-07-14 08:00] VITALS: BP 168/73
--- NOTE | 2017-07-14 08:15 | Family Medicine Progress Note ---
Progress Note Date of Service Jul 14, 2017. Subjective Pt evaluation today including: conversation w/ patient, physical exam, chart review Voiding: no voiding problems 1:1 carer states that he tends to lash out , swat at carers. Also attempts to roam hallways and enter other patient's rooms. Additional Comments: ROS difficult to ascertain due to patient's condition Medications Current Inpatient Medications Medications (Trade) Dose Ordered Sig/Wilfrid Route Start Time Stop Time Status Last Admin Dose Admin Acetaminophen (Tylenol Tab) 650 mg Q4H PRN PO 07/11/17 01:30 08/10/17 01:29 Ondansetron HCl (Zofran Inj) 4 mg Q6H PRN IV 07/11/17 01:30 08/10/17 01:29 Aspirin (Ecotrin Tab) 81 mg DAILY PO 07/11/17 09:00 08/10/17 08:59 07/14/17 08:38 81 MG Atenolol (Tenormin Tab) 25 mg DAILY PO 07/11/17 09:00 08/10/17 08:59 07/14/17 08:40 25 MG Atorvastatin Calcium (Lipitor Tab) 10 mg DAILY PO 07/11/17 09:00 08/10/17 08:59 07/14/17 08:38 10 MG Clopidogrel Bisulfate (plAVix TAB) 75 mg DAILY PO 07/11/17 09:00 08/10/17 08:59 07/14/17 08:38 75 MG Docusate Sodium (coLACE CAP) 100 mg BID PRN PO 07/11/17 01:30 08/10/17 01:29 Levothyroxine Sodium (Synthroid Tab) 100 mcg DAILYBB PO 07/11/17 06:00 08/10/17 05:59 07/14/17 06:21 100 MCG Lorazepam (Ativan Tab) 0.5 mg Q6H PRN PO 07/11/17 01:30 08/10/17 01:29 Future Hold 07/11/17 06:19 0.5 MG Memantine (Namenda Tab) 10 mg Q12 PO 07/11/17 09:00 08/10/17 08:59 07/14/17 08:41 10 MG Pantoprazole Sodium (Protonix Tab) 40 mg DAILY PO 07/11/17 09:00 08/10/17 08:59 07/14/17 08:38 40 MG Senna/Docusate Sodium (Senokot S Tab) 1 tab HS PO 07/11/17 21:00 08/10/17 20:59 07/13/17 21:25 1 TAB Tramadol HCl (Ultram Tab) 50 mg Q4H PRN PO 07/11/17 01:30 08/10/17 01:29 Haloperidol Lactate (Haldol Inj) 2.5 mg DAILY PRN IM 07/11/17 01:45 08/10/17 01:44 Haloperidol (Haldol Tab) 1 mg DAILY PRN PO 07/11/17 01:45 08/10/17 01:44 Miscellaneous (Iv Fluids Completed) 1 ea PRN PRN N/A 07/11/17 03:30 07/11/18 03:29 Hydralazine HCl (HydrALAZINE INJ) 5 mg Q6H PRN IV. 07/11/17 07:15 08/10/17 07:14 Risperidone (Risperdal Tab) 0.5 mg DAILY PRN PO 07/11/17 12:00 08/10/17 11:59 07/14/17 13:29 0.5 MG Heparin Sodium (Porcine) (Heparin Sq 5000 Unit/0.5ml) 5,000 unit Q12 SQ 07/11/17 21:00 08/10/17 20:59 Fluoxetine HCl (Prozac Cap) 20 mg DAILY PO 07/12/17 09:00 08/10/17 08:59 07/14/17 08:40 20 MG Objective Vital Signs Date Time Temp Pulse Resp B/P (MAP) Pulse Ox O2 Delivery O2 Flow Rate FiO2 07/14/17 15:40 Room Air 07/14/17 15:25 36.7 59 18 149/87 (107) 94 Room Air 07/14/17 08:00 168/73 (104) 07/14/17 07:09 36.7 70 16 170/72 (104) 93 Room Air 07/14/17 07:05 Room Air 07/14/17 03:21 Room Air Physical Exam General Appearance: WD/WN, no apparent distress Eyes: normal inspection, PERRL, sclerae normal ENT: hearing grossly normal Respiratory/Chest: lungs clear, normal breath sounds, no respiratory distress, no accessory muscle use Cardiovascular: regular rate, rhythm, no edema, no murmur Abdomen: normal bowel sounds, non tender, soft Extremities: normal range of motion, no pedal edema Neurologic/Psychiatric: alert, + disoriented (to place ([address]) and time (no answer), knows month and day, not year) Skin: normal color, no rash Laboratory Results Last Resulted 07/12/17 07:30 Red Blood Count 4.76, Mean Corpuscular Volume 84.7, Mean Corpuscular Hemoglobin 28.4, Mean Corpuscular Hemoglobin Concent 33.5, Mean Platelet Volume 9.8, Neutrophils (%) (Auto) 63.2, Lymphocytes (%) (Auto) 24.5, Monocytes (%) (Auto) 7.7, Eosinophils (%) (Auto) 3.6, Basophils (%) (Auto) 0.7, Neutrophils # (Auto) 4.86, Lymphocytes # (Auto) 1.88, Monocytes # (Auto) 0.59, Eosinophils # (Auto) 0.28, Basophils # (Auto) 0.05 Last Resulted 07/12/17 07:30 Assessment and Plan 77 year old male with Alzheimer's admission for combative state after recent discharge from [facility] for advanced dementia. The patient is currently awaiting placement in a dementia unit 07/14 -Talked with case management-still working on placement. Delirium secondary to Advanced Dementia; Alzheimer's - Haldol IM or PO PRN if patient at risk to self or others; has not required any thus far - Preference to use 0.5 mg Risperdal - notes requested from [place], pending - discharge planning to dementia unit, case management aware - continue Memantine HTN - continue atenolol 25 mg - Hdralazine 5 mg q 6 h prn for systolic > 180 Coronary artery disease- stable - ASA, Clopidogrel, Atenolol, atorvastatin 10 mg cont'd Hypothyroidism - continue levothyroxine 100 mcg Depression - continue fluoxetine 20 mg bid DVT prophylaxis heparin bid scd Continued [facility] stay due to: other Discharge planning: care home facility Resident Tracking Resident Involvement: Resident Care Provided Care Provided: Adult Hospital Medicine
[2017-07-14] MEDS: CLOPIDOGREL BISULFATE 75 MG TAB PO SCH (08:38)
[2017-07-14] MEDS: ASPIRIN 81 MG ECTAB PO SCH (08:38)
[2017-07-14] MEDS: ATORVASTATIN 10 MG TAB PO SCH (08:38)
[2017-07-14] MEDS: PANTOprazole SOD 40 MG TAB PO SCH (08:38)
[2017-07-14] MEDS: FLUOXETINE HCL 20 MG CAP PO SCH (08:40)
[2017-07-14] MEDS: MEMANTINE 10 MG TAB PO SCH ×2 (08:41→21:00)
[2017-07-14] MEDS: HEPARIN SOD 5000 UNIT/0.5 ML CARP SQ SCH ×2 (08:46→20:59)
[2017-07-14] MEDS: RISPERIDONE 0.5 MG TAB PO PRN (13:29)
[2017-07-14 15:25] VITALS: BP 149/87; PULSE 59; TEMP 36.7; O2SAT 94
[2017-07-14] MEDS: DOCUSATE SODIUM/SENNA 50/8.6MG TAB PO SCH (21:00)
[2017-07-14 23:10] VITALS: BP 166/96; PULSE 53; TEMP 36.4; O2SAT 96
[2017-07-15] MEDS: LEVOTHYROXINE 100 MCG TAB PO SCH (05:47)
[2017-07-15 07:45] VITALS: BP 176/92; PULSE 68; TEMP 36.2; O2SAT 93
[2017-07-15] MEDS: MEMANTINE 10 MG TAB PO SCH ×2 (08:43→22:48)
[2017-07-15] MEDS: CLOPIDOGREL BISULFATE 75 MG TAB PO SCH (08:43)
[2017-07-15] MEDS: PANTOprazole SOD 40 MG TAB PO SCH (08:43)
[2017-07-15] MEDS: ASPIRIN 81 MG ECTAB PO SCH (08:43)
[2017-07-15] MEDS: FLUOXETINE HCL 20 MG CAP PO SCH (08:43)
[2017-07-15] MEDS: ATORVASTATIN 10 MG TAB PO SCH (08:43)
[2017-07-15] MEDS: HEPARIN SOD 5000 UNIT/0.5 ML CARP SQ SCH ×2 (08:53→22:48)
[2017-07-15 09:45] VITALS: BP 135/87
[2017-07-15 15:17] VITALS: BP 132/85; PULSE 63; TEMP 36.6; O2SAT 94
[2017-07-15] MEDS: RISPERIDONE 0.5 MG TAB PO PRN (17:27)
--- NOTE | 2017-07-15 19:06 | Family Medicine Progress Note ---
Progress Note Date of Service Jul 15, 2017. Subjective Pt evaluation today including: conversation w/ patient Pain: Patient reports no pain PO Intake: tolerating diet well ROS and subjective report unable to assess due to patient's advanced dementia Medications Current Inpatient Medications Medications (Trade) Dose Ordered Sig/Wilfrid Route Start Time Stop Time Status Last Admin Dose Admin Acetaminophen (Tylenol Tab) 650 mg Q4H PRN PO 07/11/17 01:30 08/10/17 01:29 Ondansetron HCl (Zofran Inj) 4 mg Q6H PRN IV 07/11/17 01:30 08/10/17 01:29 Aspirin (Ecotrin Tab) 81 mg DAILY PO 07/11/17 09:00 08/10/17 08:59 07/15/17 08:43 81 MG Atenolol (Tenormin Tab) 25 mg DAILY PO 07/11/17 09:00 08/10/17 08:59 07/15/17 07:48 25 MG Atorvastatin Calcium (Lipitor Tab) 10 mg DAILY PO 07/11/17 09:00 08/10/17 08:59 07/15/17 08:43 10 MG Clopidogrel Bisulfate (plAVix TAB) 75 mg DAILY PO 07/11/17 09:00 08/10/17 08:59 07/15/17 08:43 75 MG Docusate Sodium (coLACE CAP) 100 mg BID PRN PO 07/11/17 01:30 08/10/17 01:29 Levothyroxine Sodium (Synthroid Tab) 100 mcg DAILYBB PO 07/11/17 06:00 08/10/17 05:59 07/15/17 05:47 100 MCG Lorazepam (Ativan Tab) 0.5 mg Q6H PRN PO 07/11/17 01:30 08/10/17 01:29 Future Hold 07/11/17 06:19 0.5 MG Memantine (Namenda Tab) 10 mg Q12 PO 07/11/17 09:00 08/10/17 08:59 07/15/17 08:43 10 MG Pantoprazole Sodium (Protonix Tab) 40 mg DAILY PO 07/11/17 09:00 08/10/17 08:59 07/15/17 08:43 40 MG Senna/Docusate Sodium (Senokot S Tab) 1 tab HS PO 07/11/17 21:00 12/8/17 20:59 07/14/17 21:00 1 TAB Tramadol HCl (Ultram Tab) 50 mg Q4H PRN PO 07/11/17 01:30 08/10/17 01:29 Haloperidol Lactate (Haldol Inj) 2.5 mg DAILY PRN IM 07/11/17 01:45 08/10/17 01:44 Haloperidol (Haldol Tab) 1 mg DAILY PRN PO 07/11/17 01:45 08/10/17 01:44 Miscellaneous (Iv Fluids Completed) 1 ea PRN PRN N/A 07/11/17 03:30 07/11/18 03:29 Hydralazine HCl (HydrALAZINE INJ) 5 mg Q6H PRN IV. 07/11/17 07:15 08/10/17 07:14 Risperidone (Risperdal Tab) 0.5 mg DAILY PRN PO 07/11/17 12:00 08/10/17 11:59 07/15/17 17:27 0.5 MG Heparin Sodium (Porcine) (Heparin Sq 5000 Unit/0.5ml) 5,000 unit Q12 SQ 07/11/17 21:00 08/10/17 20:59 07/15/17 08:53 5,000 UNIT Fluoxetine HCl (Prozac Cap) 20 mg DAILY PO 07/12/17 09:00 08/10/17 08:59 07/15/17 08:43 20 MG Losartan Potassium (coZAAR TAB) 25 mg QAM PO 07/16/17 09:00 08/15/17 08:59 Objective Vital Signs Date Time Temp Pulse Resp B/P (MAP) Pulse Ox O2 Delivery O2 Flow Rate FiO2 07/15/17 18:30 Room Air 07/15/17 15:17 36.6 63 132/85 (101) 94 Room Air 07/15/17 09:45 135/87 (103) 07/15/17 07:45 36.2 68 18 176/92 (120) 93 Room Air 07/15/17 07:45 Room Air 07/14/17 23:25 Room Air 07/14/17 23:10 36.4 53 16 166/96 (119) 96 Room Air Physical Exam General Appearance: WD/WN, no apparent distress Eyes: normal inspection, EOMI ENT: + pertinent finding ([place]) Respiratory/Chest: chest non-tender, lungs clear, normal breath sounds, no respiratory distress, no accessory muscle use Cardiovascular: regular rate, rhythm, no edema, no murmur Abdomen: normal bowel sounds, non tender, soft Extremities: non-tender, normal inspection, no pedal edema Neurologic/Psychiatric: airbrush painter II-XII nml as tested, no motor/sensory deficits, alert, + disoriented (oriented to self and year 2016) Laboratory Results Last Resulted 07/12/17 07:30 Red Blood Count 4.76, Mean Corpuscular Volume 84.7, Mean Corpuscular Hemoglobin 28.4, Mean Corpuscular Hemoglobin Concent 33.5, Mean Platelet Volume 9.8, Neutrophils (%) (Auto) 63.2, Lymphocytes (%) (Auto) 24.5, Monocytes (%) (Auto) 7.7, Eosinophils (%) (Auto) 3.6, Basophils (%) (Auto) 0.7, Neutrophils # (Auto) 4.86, Lymphocytes # (Auto) 1.88, Monocytes # (Auto) 0.59, Eosinophils # (Auto) 0.28, Basophils # (Auto) 0.05 Last Resulted 07/12/17 07:30 Assessment and Plan 77 year old male with Alzheimer's admission for combative state after discharge from [facility] for advanced dementia. The patient is currently awaiting placement in a dementia unit 07/15 -Talked with case management-still working on placement. -DCd 1:1 observation -Started losartan 25 for HTN Delirium secondary to Advanced Dementia; Alzheimer's - Haldol IM or PO PRN if patient at risk to self or others; has not required any thus far - Preference to use 0.5 mg Risperdal - notes requested from [facility], pending - discharge planning to dementia unit, case management aware - continue Memantine HTN - continue atenolol 25 mg - Losartan 25 started today - Hdralazine 5 mg q 6 h prn for systolic > 180 Coronary artery disease- stable - ASA, Clopidogrel, Atenolol, atorvastatin 10 mg cont'd Hypothyroidism - continue levothyroxine 100 mcg Depression - continue fluoxetine 20 mg bid DVT prophylaxis heparin bid scd Continued [facility] stay due to: other Discharge planning: halfway facility Resident Involvement: Resident Care Provided Care Provided: Adult Hospital Medicine Assessment/Plan Resident Physician Supervision Note: I was present with Dr. Flores during the history and exam. I discussed the case with the resident and agree with the findings and plan as documented in the note. Any exceptions or clarifications are listed here. 77 y/o male with h/o Alzheimer's dementia who was functionally dependent until last week presents with acute decompensation of mental status from [facility] following inpatient stay at [facility]. AAOx0, less agitated without aggression, confused about location and time. Reports no pain, sensory changes, alimentary complaints or rashes, fevers. S1/S2 nl RRR no MCG, CTAB. D/C'd 1:1 w/ q15m nursing checks as needed, haldol if there is significant disturbance. Continue atenolol. Add losartan for sustained mild HTN. Maintain PO medications for chronic disease as noted above. DNR/DNI Pending placement (avoid antipsychotics and 1:1)
[2017-07-15] MEDS: DOCUSATE SODIUM/SENNA 50/8.6MG TAB PO SCH (22:48)
[2017-07-15 23:16] VITALS: BP 150/97; PULSE 70; TEMP 36.8; O2SAT 92
[2017-07-16] MEDS: LEVOTHYROXINE 100 MCG TAB PO SCH (06:01)
[2017-07-16 07:14] VITALS: BP 144/90; PULSE 72; TEMP 36.7; O2SAT 93
[2017-07-16] MEDS: PANTOprazole SOD 40 MG TAB PO SCH (08:33)
[2017-07-16] MEDS: ASPIRIN 81 MG ECTAB PO SCH (08:33)
[2017-07-16] MEDS: ATORVASTATIN 10 MG TAB PO SCH (08:33)
[2017-07-16] MEDS: CLOPIDOGREL BISULFATE 75 MG TAB PO SCH (08:33)
[2017-07-16] MEDS: MEMANTINE 10 MG TAB PO SCH ×2 (08:34→21:04)
[2017-07-16] MEDS: FLUOXETINE HCL 20 MG CAP PO SCH (08:34)
[2017-07-16 08:35] VITALS: BP 140/90; PULSE 82
[2017-07-16] MEDS: LOSARTAN POTASSIUM 25 MG TAB PO SCH (08:38)
[2017-07-16] MEDS: HEPARIN SOD 5000 UNIT/0.5 ML CARP SQ SCH ×2 (08:44→21:03)
--- NOTE | 2017-07-16 14:21 | Family Medicine Progress Note ---
Progress Note Date of Service Jul 16, 2017. Subjective Pt evaluation today including: conversation w/ patient, physical exam, chart review, lab review Pt is more aware and less anxious today. Pt know his name, but is not oriented to time or place. Additional Comments: unable to obtain ROS due to patients mental status Medications Current Inpatient Medications Medications (Trade) Dose Ordered Sig/Wilfrid Route Start Time Stop Time Status Last Admin Dose Admin Acetaminophen (Tylenol Tab) 650 mg Q4H PRN PO 07/11/17 01:30 08/10/17 01:29 Ondansetron HCl (Zofran Inj) 4 mg Q6H PRN IV 07/11/17 01:30 08/10/17 01:29 Aspirin (Ecotrin Tab) 81 mg DAILY PO 07/11/17 09:00 08/10/17 08:59 07/16/17 08:33 81 MG Atenolol (Tenormin Tab) 25 mg DAILY PO 07/11/17 09:00 08/10/17 08:59 07/16/17 08:37 25 MG Atorvastatin Calcium (Lipitor Tab) 10 mg DAILY PO 07/11/17 09:00 08/10/17 08:59 07/16/17 08:33 10 MG Clopidogrel Bisulfate (plAVix TAB) 75 mg DAILY PO 07/11/17 09:00 08/10/17 08:59 07/16/17 08:33 75 MG Docusate Sodium (coLACE CAP) 100 mg BID PRN PO 07/11/17 01:30 08/10/17 01:29 Levothyroxine Sodium (Synthroid Tab) 100 mcg DAILYBB PO 07/11/17 06:00 08/10/17 05:59 07/16/17 06:01 100 MCG Lorazepam (Ativan Tab) 0.5 mg Q6H PRN PO 07/11/17 01:30 08/10/17 01:29 Future Hold 07/11/17 06:19 0.5 MG Memantine (Namenda Tab) 10 mg Q12 PO 07/11/17 09:00 08/10/17 08:59 07/16/17 08:34 10 MG Pantoprazole Sodium (Protonix Tab) 40 mg DAILY PO 07/11/17 09:00 08/10/17 08:59 07/16/17 08:33 40 MG Senna/Docusate Sodium (Senokot S Tab) 1 tab HS PO 07/11/17 21:00 08/10/17 20:59 07/15/17 22:48 1 TAB Tramadol HCl (Ultram Tab) 50 mg Q4H PRN PO 07/11/17 01:30 08/10/17 01:29 Haloperidol Lactate (Haldol Inj) 2.5 mg DAILY PRN IM 07/11/17 01:45 08/10/17 01:44 Haloperidol (Haldol Tab) 1 mg DAILY PRN PO 07/11/17 01:45 08/10/17 01:44 Miscellaneous (Iv Fluids Completed) 1 ea PRN PRN N/A 07/11/17 03:30 07/11/18 03:29 Hydralazine HCl (HydrALAZINE INJ) 5 mg Q6H PRN IV. 07/11/17 07:15 08/10/17 07:14 Risperidone (Risperdal Tab) 0.5 mg DAILY PRN PO 07/11/17 12:00 08/10/17 11:59 07/15/17 17:27 0.5 MG Heparin Sodium (Porcine) (Heparin Sq 5000 Unit/0.5ml) 5,000 unit Q12 SQ 07/11/17 21:00 08/10/17 20:59 07/16/17 08:44 5,000 UNIT Fluoxetine HCl (Prozac Cap) 20 mg DAILY PO 07/12/17 09:00 08/10/17 08:59 07/16/17 08:34 20 MG Losartan Potassium (coZAAR TAB) 25 mg QAM PO 07/16/17 09:00 08/15/17 08:59 07/16/17 08:38 25 MG Objective Vital Signs Date Time Temp Pulse Resp B/P (MAP) Pulse Ox O2 Delivery O2 Flow Rate FiO2 07/16/17 08:35 82 140/90 (107) 07/16/17 07:15 Room Air 07/16/17 07:14 36.7 72 18 144/90 (108) 93 Room Air 07/15/17 23:28 Room Air 07/15/17 23:16 36.8 70 16 150/97 (114) 92 Room Air 07/15/17 18:30 Room Air 07/15/17 15:17 36.6 63 132/85 (101) 94 Room Air Physical Exam General Appearance: WD/WN, no apparent distress Respiratory/Chest: chest non-tender, lungs clear, normal breath sounds, no respiratory distress, no accessory muscle use Cardiovascular: regular rate, rhythm, no edema, no gallop, no JVD, no murmur Abdomen: normal bowel sounds, non tender, soft, no organomegaly, no pulsatile mass Neurologic/Psychiatric: alert, normal mood/affect, oriented x 3 Skin: normal color, warm/dry, no rash Assessment and Plan 77 year old male with Alzheimer's admission for combative state after discharge from [facility] for advanced dementia. The patient is currently awaiting placement in a dementia unit Delirium secondary to Advanced Dementia; Alzheimer's - Haldol IM or PO PRN if patient at risk to self or others; has not required any thus far - Preference to use 0.5 mg Risperdal - discharge planning to dementia unit, case management aware - continue Memantine -Talked with case management-still working on placement. -Pt no longer on 1:1 observation HTN - continue atenolol 25 mg - Losartan 25 started today - Hdralazine 5 mg q 6 h prn for systolic > 180 Coronary artery disease- stable - ASA, Clopidogrel, Atenolol, atorvastatin 10 mg cont'd Hypothyroidism - continue levothyroxine 100 mcg Depression - continue fluoxetine 20 mg bid DVT prophylaxis heparin bid scd Continued [facility] stay due to: other Discharge planning: care home facility Resident Involvement: Resident Care Provided Care Provided: Adult Hospital Medicine Reviewed: Pt Seen/Exam by Me History no concerns per nursing/patient. patient unable to give any history Constitutional: denies: fever General Appearance: no apparent distress (pleasantly confused) Respiratory: lungs clear, no respiratory distress Cardiovascular: regular rate, rhythm Gastrointestinal: normal bowel sounds, non tender, soft Neurologic/Psychiatric: alert Skin Characteristics: warm/dry Assessment/Plan Resident Physician Supervision Note: I independently interviewed and examined the patient and verified the mayen history and physical, reviewed labs and image studies, discussed the case with the resident Dr. Shaw and agree with the findings and care plan.
[2017-07-16 15:56] VITALS: BP 122/82; PULSE 57; TEMP 36.8; O2SAT 94
[2017-07-16] MEDS: DOCUSATE SODIUM/SENNA 50/8.6MG TAB PO SCH (21:04)
[2017-07-16 23:45] VITALS: BP 140/92; PULSE 58; TEMP 36.8; O2SAT 95
[2017-07-17] MEDS: LEVOTHYROXINE 100 MCG TAB PO SCH (06:23)
[2017-07-17 07:21] VITALS: BP 155/83; PULSE 62; TEMP 36.7; O2SAT 93
[2017-07-17] MEDS: ASPIRIN 81 MG ECTAB PO SCH (08:39)
[2017-07-17] MEDS: PANTOprazole SOD 40 MG TAB PO SCH (08:39)
[2017-07-17] MEDS: FLUOXETINE HCL 20 MG CAP PO SCH (08:40)
[2017-07-17] MEDS: MEMANTINE 10 MG TAB PO SCH (08:40)
[2017-07-17] MEDS: CLOPIDOGREL BISULFATE 75 MG TAB PO SCH (08:41)
[2017-07-17] MEDS: ATORVASTATIN 10 MG TAB PO SCH (08:41)
[2017-07-17 08:42] VITALS: BP 144/88; PULSE 74
[2017-07-17] MEDS: LOSARTAN POTASSIUM 25 MG TAB PO SCH (08:44)
[2017-07-17] MEDS: HEPARIN SOD 5000 UNIT/0.5 ML CARP SQ SCH ×2 (08:47→22:07)
--- NOTE | 2017-07-17 14:53 | Family Medicine Progress Note ---
Progress Note Date of Service Jul 17, 2017. Subjective Pt evaluation today including: conversation w/ patient, conversation w/ family , physical exam, chart review, lab review Additional Comments: Unable to obtain ROS due to patients mental status changes Medications Current Inpatient Medications Medications (Trade) Dose Ordered Sig/Wilfrid Route Start Time Stop Time Status Last Admin Dose Admin Acetaminophen (Tylenol Tab) 650 mg Q4H PRN PO 07/11/17 01:30 08/10/17 01:29 Ondansetron HCl (Zofran Inj) 4 mg Q6H PRN IV 07/11/17 01:30 08/10/17 01:29 Atenolol (Tenormin Tab) 25 mg DAILY PO 07/11/17 09:00 08/10/17 08:59 07/17/17 08:44 25 MG Clopidogrel Bisulfate (plAVix TAB) 75 mg DAILY PO 07/11/17 09:00 08/10/17 08:59 07/17/17 08:41 75 MG Docusate Sodium (coLACE CAP) 100 mg BID PRN PO 07/11/17 01:30 08/10/17 01:29 Levothyroxine Sodium (Synthroid Tab) 100 mcg DAILYBB PO 07/11/17 06:00 08/10/17 05:59 07/17/17 06:23 100 MCG Lorazepam (Ativan Tab) 0.5 mg Q6H PRN PO 07/11/17 01:30 08/10/17 01:29 Future Hold 07/11/17 06:19 0.5 MG Senna/Docusate Sodium (Senokot S Tab) 1 tab HS PO 07/11/17 21:00 08/10/17 20:59 07/16/17 21:04 1 TAB Tramadol HCl (Ultram Tab) 50 mg Q4H PRN PO 07/11/17 01:30 08/10/17 01:29 Haloperidol Lactate (Haldol Inj) 2.5 mg DAILY PRN IM 07/11/17 01:45 08/10/17 01:44 Haloperidol (Haldol Tab) 1 mg DAILY PRN PO 07/11/17 01:45 08/10/17 01:44 Miscellaneous (Iv Fluids Completed) 1 ea PRN PRN N/A 07/11/17 03:30 07/11/18 03:29 Hydralazine HCl (HydrALAZINE INJ) 5 mg Q6H PRN IV. 07/11/17 07:15 08/10/17 07:14 Heparin Sodium (Porcine) (Heparin Sq 5000 Unit/0.5ml) 5,000 unit Q12 SQ 07/11/17 21:00 08/10/17 20:59 07/17/17 08:47 5,000 UNIT Fluoxetine HCl (Prozac Cap) 20 mg DAILY PO 07/12/17 09:00 08/10/17 08:59 07/17/17 08:40 20 MG Losartan Potassium (coZAAR TAB) 25 mg QAM PO 07/16/17 09:00 08/15/17 08:59 07/17/17 08:44 25 MG Risperidone (Risperdal Tab) 0.25 mg QAM PRN PO 07/17/17 11:15 08/16/17 11:14 Objective Vital Signs Date Time Temp Pulse Resp B/P (MAP) Pulse Ox O2 Delivery O2 Flow Rate FiO2 07/17/17 08:42 74 144/88 (106) 07/17/17 07:30 Room Air 07/17/17 07:21 36.7 62 16 155/83 (107) 93 Room Air 07/16/17 23:45 36.8 58 16 140/92 (108) 95 Room Air 07/16/17 23:45 Room Air 07/16/17 15:56 36.8 57 18 122/82 (95) 94 Room Air 07/16/17 15:25 Room Air Physical Exam General Appearance: WD/WN, no apparent distress Respiratory/Chest: chest non-tender, lungs clear, normal breath sounds, no respiratory distress, no accessory muscle use Cardiovascular: regular rate, rhythm, no edema, no gallop, no JVD, no murmur Abdomen: normal bowel sounds, non tender, soft, no organomegaly Neurologic/Psychiatric: alert, normal mood/affect, + pertinent finding ( oriented to person ) Skin: normal color, warm/dry, no rash Assessment and Plan 77 year old male with Alzheimer's admission for combative state after discharge from [facility] for advanced dementia. The patient is currently awaiting placement in a dementia unit Advanced Dementia; Alzheimer's -Pt agitation well controlled; decreasing Risperdal to .25 mg - discharge planning to dementia unit, case management aware, looking at places in [place] -Pt no longer on 1:1 observation -Dcing the following medications; Lipitor, ASA, ppi, Namenda HTN - continue atenolol 25 mg - Losartan 25 started today - Hdralazine 5 mg q 6 h prn for systolic > 180 Coronary artery disease- stable - ASA, Clopidogrel, Atenolol, atorvastatin 10 mg cont'd Hypothyroidism - continue levothyroxine 100 mcg Depression - continue fluoxetine 20 mg bid DVT prophylaxis heparin bid scd Dcing the following meds, risk out weigh benefit at this time; Lipitor, PPI, ASA , Namenda Still awaiting placement at [place] Requested records from [place] to be sent discussed plan with his daughter June; [phone] Reviewed: Pt Seen/Exam by Me History no new concerns unable to give any history Constitutional: denies: fever General Appearance: no apparent distress, other (sleeping comfortably. arousable) Respiratory: no respiratory distress Cardiovascular: regular rate, rhythm Skin Characteristics: warm/dry Assessment/Plan Resident Physician Supervision Note: I independently interviewed and examined the patient and verified the mayen history and physical, reviewed labs and image studies, discussed the case with the resident Dr. Shaw and agree with the findings and care plan.
[2017-07-17 15:03] VITALS: BP 140/85; PULSE 61; TEMP 36.6; O2SAT 94
[2017-07-17] MEDS: DOCUSATE SODIUM/SENNA 50/8.6MG TAB PO SCH (22:09)
[2017-07-17 22:46] VITALS: BP 164/103; PULSE 64; TEMP 36.7; O2SAT 96
[2017-07-18 00:28] VITALS: BP 168/96
[2017-07-18] MEDS: LEVOTHYROXINE 100 MCG TAB PO SCH (05:28)
--- NOTE | 2017-07-18 06:47 | Family Medicine Progress Note ---
Progress Note Date of Service Jul 18, 2017. Subjective Pt evaluation today including: conversation w/ patient, physical exam, chart review, lab review, review of studies Pt is doing well today. Pt is up walking around and fully dressed. Says that he needs to get to the football game today. He is in a good mood; not anxious. Alert to person, but not time and place. Additional Comments: unable to obtain ROS due to pts mental status Medications Current Inpatient Medications Medications (Trade) Dose Ordered Sig/Wilfrid Route Start Time Stop Time Status Last Admin Dose Admin Acetaminophen (Tylenol Tab) 650 mg Q4H PRN PO 07/11/17 01:30 08/10/17 01:29 Ondansetron HCl (Zofran Inj) 4 mg Q6H PRN IV 07/11/17 01:30 08/10/17 01:29 Atenolol (Tenormin Tab) 25 mg DAILY PO 07/11/17 09:00 08/10/17 08:59 07/17/17 08:44 25 MG Clopidogrel Bisulfate (plAVix TAB) 75 mg DAILY PO 07/11/17 09:00 08/10/17 08:59 07/17/17 08:41 75 MG Docusate Sodium (coLACE CAP) 100 mg BID PRN PO 07/11/17 01:30 08/10/17 01:29 Levothyroxine Sodium (Synthroid Tab) 100 mcg DAILYBB PO 07/11/17 06:00 08/10/17 05:59 07/18/17 05:28 100 MCG Lorazepam (Ativan Tab) 0.5 mg Q6H PRN PO 07/11/17 01:30 08/10/17 01:29 Future Hold 07/11/17 06:19 0.5 MG Senna/Docusate Sodium (Senokot S Tab) 1 tab HS PO 07/11/17 21:00 08/10/17 20:59 07/17/17 22:09 1 TAB Tramadol HCl (Ultram Tab) 50 mg Q4H PRN PO 07/11/17 01:30 08/10/17 01:29 Haloperidol Lactate (Haldol Inj) 2.5 mg DAILY PRN IM 07/11/17 01:45 08/10/17 01:44 Haloperidol (Haldol Tab) 1 mg DAILY PRN PO 07/11/17 01:45 08/10/17 01:44 Miscellaneous (Iv Fluids Completed) 1 ea PRN PRN N/A 07/11/17 03:30 07/11/18 03:29 Hydralazine HCl (HydrALAZINE INJ) 5 mg Q6H PRN IV. 07/11/17 07:15 08/10/17 07:14 Heparin Sodium (Porcine) (Heparin Sq 5000 Unit/0.5ml) 5,000 unit Q12 SQ 07/11/17 21:00 08/10/17 20:59 07/17/17 22:07 5,000 UNIT Fluoxetine HCl (Prozac Cap) 20 mg DAILY PO 07/12/17 09:00 08/10/17 08:59 07/17/17 08:40 20 MG Losartan Potassium (coZAAR TAB) 25 mg QAM PO 07/16/17 09:00 08/15/17 08:59 07/17/17 08:44 25 MG Risperidone (Risperdal Tab) 0.25 mg QAM PRN PO 07/17/17 11:15 08/16/17 11:14 Objective Vital Signs Date Time Temp Pulse Resp B/P (MAP) Pulse Ox O2 Delivery O2 Flow Rate FiO2 07/18/17 00:28 168/96 (120) 07/18/17 00:20 Room Air 07/17/17 22:46 36.7 64 16 164/103 (123) 96 Room Air 07/17/17 15:15 Room Air 07/17/17 15:03 36.6 61 16 140/85 (103) 94 Room Air 07/17/17 08:42 74 144/88 (106) 07/17/17 07:30 Room Air 07/17/17 07:21 36.7 62 16 155/83 (107) 93 Room Air Physical Exam General Appearance: WD/WN, no apparent distress Neck: supple, no adenopathy Respiratory/Chest: chest non-tender, lungs clear, normal breath sounds, no respiratory distress, no accessory muscle use Cardiovascular: regular rate, rhythm, no edema, no gallop, no JVD, no murmur Neurologic/Psychiatric: alert, normal mood/affect, + pertinent finding ( oriented to person, but not place and time) Skin: normal color, warm/dry, no rash Assessment and Plan 77 year old male with Alzheimer's admission for combative state after discharge from [facility] for advanced dementia. The patient is currently awaiting placement in a dementia unit Advanced Dementia; Alzheimer's -Pt agitation well controlled; decreasing Risperdal to .25 mg - discharge planning to dementia unit, case management aware, looking at places in [place] -Pt no longer on 1:1 observation -Dcing the following medications; Lipitor, ASA, ppi, Namenda HTN - continue atenolol 25 mg - Losartan 25 started today - Hydralazine 5 mg q 6 h prn for systolic > 180 Coronary artery disease- stable - cont atenolol and clopidogrel Hypothyroidism - continue levothyroxine 100 mcg Depression - continue fluoxetine 20 mg bid DVT prophylaxis heparin bid scd daughter June; [phone] Reviewed: Pt Seen/Exam by Me History no concerns walking in the hallways. unable to give any history Constitutional: denies: fever General Appearance: no apparent distress Respiratory: lungs clear, no respiratory distress Cardiovascular: regular rate, rhythm Neurologic/Psychiatric: alert, other (pleasantly demented) Skin Characteristics: warm/dry Assessment/Plan Resident Physician Supervision Note: I independently interviewed and examined the patient and verified the mayen history and physical, reviewed labs and image studies, discussed the case with the resident Dr. Shaw and agree with the findings and care plan.
[2017-07-18 07:03] VITALS: BP 172/86; PULSE 76; TEMP 36.8; O2SAT 92
[2017-07-18 08:31] VITALS: BP 161/89; PULSE 87
[2017-07-18] MEDS: CLOPIDOGREL BISULFATE 75 MG TAB PO SCH (08:33)
[2017-07-18] MEDS: LOSARTAN POTASSIUM 25 MG TAB PO SCH (08:33)
[2017-07-18] MEDS: FLUOXETINE HCL 20 MG CAP PO SCH (08:33)
[2017-07-18] MEDS: HEPARIN SOD 5000 UNIT/0.5 ML CARP SQ SCH ×2 (08:37→21:01)
[2017-07-18 11:17] VITALS: BP 136/87
[2017-07-18 14:56] VITALS: BP 127/80; PULSE 64; TEMP 36.4; O2SAT 94
[2017-07-18] MEDS: DOCUSATE SODIUM/SENNA 50/8.6MG TAB PO SCH (20:58)
[2017-07-19] VITALS (7 sets, daily range): BP systolic 133–180; BP diastolic 74–96; PULSE 54–61; TEMP 36.4–36.7; O2SAT 90–95
[2017-07-19] MEDS: LEVOTHYROXINE 100 MCG TAB PO SCH (05:53)
[2017-07-19] MEDS: LOSARTAN POTASSIUM 25 MG TAB PO SCH (08:05)
[2017-07-19] MEDS: FLUOXETINE HCL 20 MG CAP PO SCH (08:57)
[2017-07-19] MEDS: CLOPIDOGREL BISULFATE 75 MG TAB PO SCH (08:57)
[2017-07-19] MEDS: HEPARIN SOD 5000 UNIT/0.5 ML CARP SQ SCH ×2 (09:01→20:54)
--- NOTE | 2017-07-19 14:09 | Family Medicine Progress Note ---
Progress Note Date of Service Jul 19, 2017. Subjective Pt evaluation today including: conversation w/ patient, physical exam, chart review, lab review, review of studies Pt is sitting up in bed smiling and making jokes. He is oriented to person, but not time or place. Additional Comments: Unable to obtain accurate ROS due to patients mental status Medications Current Inpatient Medications Medications (Trade) Dose Ordered Sig/Wilfrid Route Start Time Stop Time Status Last Admin Dose Admin Acetaminophen (Tylenol Tab) 650 mg Q4H PRN PO 07/11/17 01:30 08/10/17 01:29 Ondansetron HCl (Zofran Inj) 4 mg Q6H PRN IV 07/11/17 01:30 08/10/17 01:29 Atenolol (Tenormin Tab) 25 mg DAILY PO 07/11/17 09:00 08/10/17 08:59 07/19/17 08:05 25 MG Clopidogrel Bisulfate (plAVix TAB) 75 mg DAILY PO 07/11/17 09:00 08/10/17 08:59 07/19/17 08:57 75 MG Docusate Sodium (coLACE CAP) 100 mg BID PRN PO 07/11/17 01:30 08/10/17 01:29 Levothyroxine Sodium (Synthroid Tab) 100 mcg DAILYBB PO 07/11/17 06:00 08/10/17 05:59 07/19/17 05:53 100 MCG Lorazepam (Ativan Tab) 0.5 mg Q6H PRN PO 07/11/17 01:30 08/10/17 01:29 Future Hold 07/11/17 06:19 0.5 MG Senna/Docusate Sodium (Senokot S Tab) 1 tab HS PO 07/11/17 21:00 08/10/17 20:59 07/17/17 22:09 1 TAB Tramadol HCl (Ultram Tab) 50 mg Q4H PRN PO 07/11/17 01:30 08/10/17 01:29 Haloperidol Lactate (Haldol Inj) 2.5 mg DAILY PRN IM 07/11/17 01:45 08/10/17 01:44 Haloperidol (Haldol Tab) 1 mg DAILY PRN PO 07/11/17 01:45 08/10/17 01:44 Miscellaneous (Iv Fluids Completed) 1 ea PRN PRN N/A 07/11/17 03:30 07/11/18 03:29 Hydralazine HCl (HydrALAZINE INJ) 5 mg Q6H PRN IV. 07/11/17 07:15 08/10/17 07:14 Heparin Sodium (Porcine) (Heparin Sq 5000 Unit/0.5ml) 5,000 unit Q12 SQ 07/11/17 21:00 08/10/17 20:59 07/19/17 09:01 5,000 UNIT Fluoxetine HCl (Prozac Cap) 20 mg DAILY PO 07/12/17 09:00 08/10/17 08:59 07/19/17 08:57 20 MG Losartan Potassium (coZAAR TAB) 25 mg QAM PO 07/16/17 09:00 08/15/17 08:59 07/19/17 08:05 25 MG Risperidone (Risperdal Tab) 0.25 mg QAM PRN PO 07/17/17 11:15 08/16/17 11:14 Objective Vital Signs Date Time Temp Pulse Resp B/P (MAP) Pulse Ox O2 Delivery O2 Flow Rate FiO2 07/19/17 12:26 133/74 (93) 07/19/17 08:03 61 07/19/17 07:55 91 Room Air 07/19/17 06:56 36.4 54 16 180/96 (124) 90 Room Air 07/19/17 00:20 36.5 59 16 156/90 (112) 95 Room Air 07/19/17 00:20 Room Air 07/18/17 16:45 Room Air 07/18/17 14:56 36.4 64 16 127/80 (96) 94 Room Air Physical Exam General Appearance: WD/WN, no apparent distress Eyes: normal inspection, sclerae normal Neck: supple, no adenopathy Respiratory/Chest: chest non-tender, lungs clear, normal breath sounds, no respiratory distress, no accessory muscle use Cardiovascular: regular rate, rhythm, no edema, no gallop, no JVD, no murmur Neurologic/Psychiatric: alert, normal mood/affect, oriented x 3 Skin: normal color, warm/dry, no rash Assessment and Plan 77 year old male with Alzheimer's admission for combative state after discharge from [facility] for advanced dementia. The patient is currently awaiting placement in a dementia unit Advanced Dementia; Alzheimer's -Pt agitation well controlled; decreasing Risperdal to .25 mg -Pt confused, but not agitated. Pt is ambulating well with the help of nursing aids. -discharge planning to dementia unit, case management aware, looking at places in [place] -Pt no longer on 1:1 observation HTN - continue atenolol 25 mg - Losartan 25 started today - Hydralazine 5 mg q 6 h prn for systolic > 180 Coronary artery disease- stable - cont atenolol and clopidogrel Hypothyroidism - continue levothyroxine 100 mcg Depression - continue fluoxetine 20 mg bid DVT prophylaxis heparin bid scd Reviewed: Pt Seen/Exam by Me History walking in hallways. later in the day - became agitated and asking to go home. nursing aid walking with him prn meds ordered for agitation Constitutional: denies: fever General Appearance: no apparent distress Respiratory: lungs clear, no respiratory distress Cardiovascular: regular rate, rhythm Neurologic/Psychiatric: alert Skin Characteristics: warm/dry Assessment/Plan Resident Physician Supervision Note: I independently interviewed and examined the patient and verified the mayen history and physical, reviewed labs and image studies, discussed the case with the resident Dr. Shaw and agree with the findings and care plan.
[2017-07-19] MEDS: RISPERIDONE ODT 0.5MG PO STA ×2 (14:53→15:51)
[2017-07-19] MEDS ORDERED: HALOPERIDOL LACTATE 5 MG/ML 1 ML VIAL IM PRN (15:30)
[2017-07-19] MEDS: DOCUSATE SODIUM/SENNA 50/8.6MG TAB PO SCH (20:54)
[2017-07-20] MEDS: LEVOTHYROXINE 100 MCG TAB PO SCH (05:33)
[2017-07-20 07:10] VITALS: BP 176/96; PULSE 62; TEMP 36.5; O2SAT 94
[2017-07-20 08:00] VITALS: O2SAT 94
[2017-07-20 09:17] VITALS: BP 145/96; PULSE 87
[2017-07-20] MEDS: HEPARIN SOD 5000 UNIT/0.5 ML CARP SQ SCH ×2 (09:18→20:59)
[2017-07-20] MEDS: LOSARTAN POTASSIUM 25 MG TAB PO SCH (09:19)
[2017-07-20] MEDS: FLUOXETINE HCL 20 MG CAP PO SCH (09:19)
[2017-07-20] MEDS: CLOPIDOGREL BISULFATE 75 MG TAB PO SCH (09:19)
--- NOTE | 2017-07-20 10:20 | Family Medicine Progress Note ---
Progress Note Date of Service Jul 20, 2017. 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 Constitutional: No fever, No chills Respiratory: No cough, No sputum, No shortness of breath Cardiovascular: No chest pain, No palpitations Abdomen: No pain, No nausea, No vomiting Male : No dysuria, No urinary frequency Heme: No abnormal bleeding/bruising Skin: No rash, No itch, No new/changing skin lesions Medications Current Inpatient Medications Medications (Trade) Dose Ordered Sig/Wilfrid Route Start Time Stop Time Status Last Admin Dose Admin Acetaminophen (Tylenol Tab) 650 mg Q4H PRN PO 07/11/17 01:30 08/10/17 01:29 Ondansetron HCl (Zofran Inj) 4 mg Q6H PRN IV 07/11/17 01:30 08/10/17 01:29 Atenolol (Tenormin Tab) 25 mg DAILY PO 07/11/17 09:00 08/10/17 08:59 07/20/17 09:19 25 MG Clopidogrel Bisulfate (plAVix TAB) 75 mg DAILY PO 07/11/17 09:00 08/10/17 08:59 07/20/17 09:19 75 MG Docusate Sodium (coLACE CAP) 100 mg BID PRN PO 07/11/17 01:30 08/10/17 01:29 Levothyroxine Sodium (Synthroid Tab) 100 mcg DAILYBB PO 07/11/17 06:00 08/10/17 05:59 07/20/17 05:33 100 MCG Lorazepam (Ativan Tab) 0.5 mg Q6H PRN PO 07/11/17 01:30 08/10/17 01:29 Future Hold 07/11/17 06:19 0.5 MG Senna/Docusate Sodium (Senokot S Tab) 1 tab HS PO 07/11/17 21:00 08/10/17 20:59 07/19/17 20:54 1 TAB Tramadol HCl (Ultram Tab) 50 mg Q4H PRN PO 07/11/17 01:30 08/10/17 01:29 Haloperidol (Haldol Tab) 1 mg DAILY PRN PO 07/11/17 01:45 08/10/17 01:44 Miscellaneous (Iv Fluids Completed) 1 ea PRN PRN N/A 07/11/17 03:30 07/11/18 03:29 Hydralazine HCl (HydrALAZINE INJ) 5 mg Q6H PRN IV. 07/11/17 07:15 08/10/17 07:14 Heparin Sodium (Porcine) (Heparin Sq 5000 Unit/0.5ml) 5,000 unit Q12 SQ 07/11/17 21:00 08/10/17 20:59 07/20/17 09:18 5,000 UNIT Fluoxetine HCl (Prozac Cap) 20 mg DAILY PO 07/12/17 09:00 08/10/17 08:59 07/20/17 09:19 20 MG Losartan Potassium (coZAAR TAB) 25 mg QAM PO 07/16/17 09:00 08/15/17 08:59 07/20/17 09:19 25 MG Risperidone (Risperdal Tab) 0.25 mg QAM PRN PO 07/17/17 11:15 08/16/17 11:14 Haloperidol Lactate (Haldol Inj) 5 mg DAILY PRN IM 07/19/17 15:30 08/10/17 01:44 Objective Vital Signs Date Time Temp Pulse Resp B/P (MAP) Pulse Ox O2 Delivery O2 Flow Rate FiO2 07/20/17 09:17 87 145/96 (112) 07/20/17 07:10 36.5 62 18 176/96 (122) 94 Room Air 07/19/17 23:15 Room Air 07/19/17 23:01 36.5 56 16 138/81 (100) 93 Room Air 07/19/17 16:50 Room Air 07/19/17 16:13 36.7 60 16 140/81 (100) 95 Room Air 07/19/17 12:26 133/74 (93) Physical Exam Notes: General Appearance: WD/WN, no apparent distress Eyes: normal inspection, sclerae normal Neck: supple, no adenopathy Respiratory/Chest: chest non-tender, lungs clear, normal breath sounds, no respiratory distress, no accessory muscle use Cardiovascular: regular rate, rhythm, no edema, no gallop, no JVD, no murmur Neurologic/Psychiatric: alert, normal mood/affect, orientated to person but not to place or time Skin: normal color, warm/dry, no rash Assessment and Plan 77 year old male with Alzheimer's admission for combative state after discharge from [facility] for advanced dementia. The patient is currently awaiting placement in a dementia unit Advanced Dementia; Alzheimer's -Pt confused, but not agitated. Pt is ambulating well with the help of nursing aids. -discharge planning to dementia unit, case management aware, looking at places in [place] -continue risperdal prn HTN - continue atenolol 25 mg - Losartan 25 started - Hydralazine 5 mg q 6 h prn for systolic > 180 Coronary artery disease- stable - cont atenolol and clopidogrel Hypothyroidism - continue levothyroxine 100 mcg Depression - continue fluoxetine 20 mg bid DVT prophylaxis heparin bid scd Continued [facility] stay due to: home environment unsafe for pt Discharge planning: snf facility Reviewed: Pt Seen/Exam by Me History was agitated yesterday afternoon but did well since then. ambulating hallways with nurse aid. denies any concerns Constitutional: denies: fever General Appearance: no apparent distress Respiratory: lungs clear, no respiratory distress Cardiovascular: regular rate, rhythm Neurologic/Psychiatric: alert, other (pleasant, disoriented to time, place, ) Skin Characteristics: warm/dry Assessment/Plan Resident Physician Supervision Note: I independently interviewed and examined the patient and verified the mayen history and physical, reviewed labs and image studies, discussed the case with the resident Dr. Shaw and agree with the findings and care plan.
[2017-07-20 15:02] VITALS: BP 157/91; PULSE 68; TEMP 36.4; O2SAT 94
[2017-07-20] MEDS: HALOPERIDOL 1 MG TAB PO PRN (16:15)
[2017-07-20] MEDS: DOCUSATE SODIUM/SENNA 50/8.6MG TAB PO SCH (20:56)
[2017-07-21] MEDS: RISPERIDONE 0.5 MG TAB PO PRN (01:13)
[2017-07-21] MEDS: LEVOTHYROXINE 100 MCG TAB PO SCH (05:24)
[2017-07-21 08:15] VITALS: BP 163/80; PULSE 79; TEMP 36.9; O2SAT 93
[2017-07-21] MEDS: FLUOXETINE HCL 20 MG CAP PO SCH (09:00)
[2017-07-21] MEDS: CLOPIDOGREL BISULFATE 75 MG TAB PO SCH (09:51)
[2017-07-21] MEDS: LOSARTAN POTASSIUM 25 MG TAB PO SCH (09:51)
[2017-07-21] MEDS: HEPARIN SOD 5000 UNIT/0.5 ML CARP SQ SCH ×2 (09:56→20:47)
[2017-07-21 11:37] VITALS: BP 156/91; PULSE 70; O2SAT 96
--- NOTE | 2017-07-21 12:08 | Family Medicine Progress Note ---
Progress Note Date of Service Jul 21, 2017. Subjective Pt evaluation today including: conversation w/ patient, physical exam, chart review, lab review, review of studies, review of inpatient medication list Pain: denies PO Intake: adequate Voiding: no voiding problems No acute events overnight.Level of agitation significantly improved. Patient remains disoriented at baseline. Patient has no complaints. Additional Comments: could not assess complete ROS due to patient's mental status Medications Current Inpatient Medications Medications (Trade) Dose Ordered Sig/Wilfrid Route Start Time Stop Time Status Last Admin Dose Admin Acetaminophen (Tylenol Tab) 650 mg Q4H PRN PO 07/11/17 01:30 08/10/17 01:29 Ondansetron HCl (Zofran Inj) 4 mg Q6H PRN IV 07/11/17 01:30 08/10/17 01:29 Atenolol (Tenormin Tab) 25 mg DAILY PO 07/11/17 09:00 08/10/17 08:59 07/21/17 09:51 25 MG Clopidogrel Bisulfate (plAVix TAB) 75 mg DAILY PO 07/11/17 09:00 08/10/17 08:59 07/21/17 09:51 75 MG Docusate Sodium (coLACE CAP) 100 mg BID PRN PO 07/11/17 01:30 08/10/17 01:29 Levothyroxine Sodium (Synthroid Tab) 100 mcg DAILYBB PO 07/11/17 06:00 08/10/17 05:59 07/21/17 05:24 100 MCG Lorazepam (Ativan Tab) 0.5 mg Q6H PRN PO 07/11/17 01:30 08/10/17 01:29 Future Hold 07/11/17 06:19 0.5 MG Senna/Docusate Sodium (Senokot S Tab) 1 tab HS PO 07/11/17 21:00 08/10/17 20:59 07/19/17 20:54 1 TAB Tramadol HCl (Ultram Tab) 50 mg Q4H PRN PO 07/11/17 01:30 08/10/17 01:29 Haloperidol (Haldol Tab) 1 mg DAILY PRN PO 07/11/17 01:45 08/10/17 01:44 07/20/17 16:15 1 MG Miscellaneous (Iv Fluids Completed) 1 ea PRN PRN N/A 07/11/17 03:30 07/11/18 03:29 Hydralazine HCl (HydrALAZINE INJ) 5 mg Q6H PRN IV. 07/11/17 07:15 08/10/17 07:14 Heparin Sodium (Porcine) (Heparin Sq 5000 Unit/0.5ml) 5,000 unit Q12 SQ 07/11/17 21:00 08/10/17 20:59 07/21/17 09:56 5,000 UNIT Fluoxetine HCl (Prozac Cap) 20 mg DAILY PO 07/12/17 09:00 08/10/17 08:59 07/21/17 09:00 20 MG Losartan Potassium (coZAAR TAB) 25 mg QAM PO 07/16/17 09:00 08/15/17 08:59 07/21/17 09:51 25 MG Risperidone (Risperdal Tab) 0.25 mg QAM PRN PO 07/17/17 11:15 08/16/17 11:14 07/21/17 01:13 0.25 MG Haloperidol Lactate (Haldol Inj) 5 mg DAILY PRN IM 07/19/17 15:30 08/10/17 01:44 Objective Vital Signs Date Time Temp Pulse Resp B/P (MAP) Pulse Ox O2 Delivery O2 Flow Rate FiO2 07/21/17 11:37 70 18 156/91 (112) 96 Room Air 07/21/17 08:15 Room Air 07/21/17 08:15 36.9 79 16 163/80 (107) 93 Room Air 07/21/17 01:05 Room Air 07/20/17 15:02 36.4 68 18 157/91 (113) 94 Room Air 07/20/17 15:00 Room Air Physical Exam General Appearance: WD/WN, no apparent distress Eyes: normal inspection, PERRL, EOMI Neck: supple, no adenopathy, trachea midline Respiratory/Chest: lungs clear, normal breath sounds, no respiratory distress, no accessory muscle use Cardiovascular: regular rate, rhythm, no edema, no murmur Abdomen: normal bowel sounds, non tender, soft Extremities: no pedal edema, no calf tenderness Neurologic/Psychiatric: alert, + disoriented (oriented to Person only) Skin: normal color, warm/dry Assessment and Plan 77 yo M with hx of Alzheimer's with advanced dementia admitted for combative state post-discharge from [facility] for advanced dementia. Advanced Dementia; Alzheimer's -Pt confused, agitation level significant improved. -Continue Risperdal prn HTN -BP inadequately controlled - Increase atenolol 25 mg daily to BID - Continue Losartan 25 - Hydralazine 5 mg q 6 h prn for systolic > 180 Coronary artery disease - stable - cont atenolol and clopidogrel Hypothyroidism - continue levothyroxine 100 mcg Depression - continue fluoxetine 20 mg bid DVT prophylaxis heparin bid scd Disposition: -awaiting placement acceptance at dementia unit. [facility] vs [facility] Continued [facility] stay due to: home environment unsafe for pt Discharge planning: nursing home facility Resident Tracking Resident Involvement: Resident Care Provided Care Provided: Adult Hospital Medicine Reviewed: Pt Seen/Exam by Me History no new concerns. walking in the hallway with nurse aid through the day Constitutional: denies: fever General Appearance: no apparent distress Respiratory: lungs clear, no respiratory distress Cardiovascular: regular rate, rhythm Neurologic/Psychiatric: alert, other (pleasantly demented) Assessment/Plan Resident Physician Supervision Note: I independently interviewed and examined the patient and verified the mayen history and physical, reviewed labs and image studies, discussed the case with the resident Dr. Shaw and agree with the findings and care plan.
[2017-07-21 14:56] VITALS: BP 152/94; PULSE 66; TEMP 36.4; O2SAT 92
[2017-07-21 20:07] VITALS: BP 124/72; PULSE 88
[2017-07-21] MEDS: DOCUSATE SODIUM/SENNA 50/8.6MG TAB PO SCH (20:37)
[2017-07-21 22:45] VITALS: BP 128/84; PULSE 72; TEMP 37; O2SAT 94
[2017-07-22] MEDS: RISPERIDONE 0.5 MG TAB PO PRN (03:03)
[2017-07-22 07:37] VITALS: BP 137/85; PULSE 85; TEMP 36.9; O2SAT 93
[2017-07-22] MEDS: LEVOTHYROXINE 100 MCG TAB PO SCH (07:57)
[2017-07-22] MEDS: LOSARTAN POTASSIUM 25 MG TAB PO SCH (07:58)
[2017-07-22] MEDS: CLOPIDOGREL BISULFATE 75 MG TAB PO SCH (07:58)
[2017-07-22] MEDS: FLUOXETINE HCL 20 MG CAP PO SCH (07:59)
[2017-07-22] MEDS: HEPARIN SOD 5000 UNIT/0.5 ML CARP SQ SCH ×2 (08:10→20:42)
--- NOTE | 2017-07-22 10:11 | Family Medicine Progress Note ---
Progress Note Date of Service Jul 22, 2017. Subjective Pt evaluation today including: conversation w/ patient, physical exam, chart review, lab review, review of studies, review of inpatient medication list Pain: unable to assess PO Intake: adequate Voiding: no voiding problems Per nursing, patient became more agitated over night. Around 3 am, patient was given .25 mg Risperdal which calmed him down. Additional Comments: could not assess due to patient's mental status Medications Current Inpatient Medications Medications (Trade) Dose Ordered Sig/Wilfrid Route Start Time Stop Time Status Last Admin Dose Admin Acetaminophen (Tylenol Tab) 650 mg Q4H PRN PO 07/11/17 01:30 08/10/17 01:29 Ondansetron HCl (Zofran Inj) 4 mg Q6H PRN IV 07/11/17 01:30 08/10/17 01:29 Clopidogrel Bisulfate (plAVix TAB) 75 mg DAILY PO 07/11/17 09:00 08/10/17 08:59 07/22/17 07:58 75 MG Docusate Sodium (coLACE CAP) 100 mg BID PRN PO 07/11/17 01:30 08/10/17 01:29 Levothyroxine Sodium (Synthroid Tab) 100 mcg DAILYBB PO 07/11/17 06:00 08/10/17 05:59 07/22/17 07:57 100 MCG Lorazepam (Ativan Tab) 0.5 mg Q6H PRN PO 07/11/17 01:30 08/10/17 01:29 Future Hold 07/11/17 06:19 0.5 MG Senna/Docusate Sodium (Senokot S Tab) 1 tab HS PO 07/11/17 21:00 08/10/17 20:59 07/21/17 20:37 1 TAB Tramadol HCl (Ultram Tab) 50 mg Q4H PRN PO 07/11/17 01:30 08/10/17 01:29 Haloperidol (Haldol Tab) 1 mg DAILY PRN PO 07/11/17 01:45 08/10/17 01:44 07/20/17 16:15 1 MG Miscellaneous (Iv Fluids Completed) 1 ea PRN PRN N/A 07/11/17 03:30 07/11/18 03:29 Hydralazine HCl (HydrALAZINE INJ) 5 mg Q6H PRN IV. 07/11/17 07:15 08/10/17 07:14 Heparin Sodium (Porcine) (Heparin Sq 5000 Unit/0.5ml) 5,000 unit Q12 SQ 07/11/17 21:00 08/10/17 20:59 07/22/17 08:10 5,000 UNIT Fluoxetine HCl (Prozac Cap) 20 mg DAILY PO 07/12/17 09:00 08/10/17 08:59 07/22/17 07:59 20 MG Losartan Potassium (coZAAR TAB) 25 mg QAM PO 07/16/17 09:00 08/15/17 08:59 07/22/17 07:58 25 MG Risperidone (Risperdal Tab) 0.25 mg QAM PRN PO 07/17/17 11:15 08/16/17 11:14 07/22/17 03:03 0.25 MG Haloperidol Lactate (Haldol Inj) 5 mg DAILY PRN IM 07/19/17 15:30 08/10/17 01:44 Atenolol (Tenormin Tab) 25 mg BID PO 07/21/17 21:00 08/20/17 20:59 07/22/17 07:58 25 MG Objective Vital Signs Date Time Temp Pulse Resp B/P (MAP) Pulse Ox O2 Delivery O2 Flow Rate FiO2 07/22/17 07:37 36.9 85 18 137/85 (102) 93 Room Air 07/21/17 23:00 Room Air 07/21/17 22:45 37.0 72 16 128/84 (99) 94 Room Air 07/21/17 20:07 88 124/72 (89) 07/21/17 16:40 Room Air 07/21/17 14:56 36.4 66 18 152/94 (113) 92 Room Air 07/21/17 11:37 70 18 156/91 (112) 96 Room Air Physical Exam General Appearance: WD/WN, no apparent distress, + pertinent finding (unable to arouse) Neck: supple, no adenopathy, trachea midline Respiratory/Chest: lungs clear, normal breath sounds, no respiratory distress Cardiovascular: regular rate, rhythm, no murmur Abdomen: normal bowel sounds, soft, no organomegaly Extremities: no pedal edema, normal capillary refill Neurologic/Psychiatric: + pertinent finding (could not assess due to mental status) Skin: warm/dry, no rash Assessment and Plan 77 yo M with hx of Alzheimer's with advanced dementia admitted for combative state post-discharge from [facility] for advanced dementia. Advanced Dementia: Alzheimer's -s/p Risperidone for agitation overnight -Continue to monitor -Continue Risperdal prn HTN -BP i controlled - Continue atenolol 25 mg BID - Continue Losartan 25 - Hydralazine 5 mg q 6 h prn for systolic > 180 Coronary artery disease - stable - cont atenolol and clopidogrel Hypothyroidism - continue levothyroxine 100 mcg Depression - continue fluoxetine 20 mg bid DVT prophylaxis heparin bid scd Disposition: -awaiting placement acceptance at dementia unit. [facility] stay due to: home environment unsafe for pt Discharge planning: [facility] facility Resident Tracking Resident Involvement: Resident Care Provided Care Provided: Adult Hospital Medicine Reviewed: Pt Seen/Exam by Me History no concerns walking the hallways. no agitation Constitutional: denies: fever General Appearance: no apparent distress Respiratory: no respiratory distress Neurologic/Psychiatric: alert Skin Characteristics: warm/dry Assessment/Plan Resident Physician Supervision Note: I independently interviewed and examined the patient and verified the mayen history and physical, reviewed labs and image studies, discussed the case with the resident Dr. Shaw and agree with the findings and care plan.
[2017-07-22 14:51] VITALS: BP 126/79; PULSE 59; TEMP 36.4; O2SAT 97
[2017-07-22 20:29] VITALS: BP 130/79; PULSE 59
[2017-07-22] MEDS ORDERED: NURSING VERBAL MED ORDER STA (20:35)
[2017-07-22] MEDS: DOCUSATE SODIUM/SENNA 50/8.6MG TAB PO SCH (20:38)
[2017-07-22] MEDS ORDERED: RISPERIDONE 0.5 MG TAB PO ONE (20:45)
[2017-07-22 22:47] VITALS: BP 127/82; PULSE 68; TEMP 36.5; O2SAT 93
[2017-07-23] MEDS: LEVOTHYROXINE 100 MCG TAB PO SCH (06:19)
[2017-07-23 07:20] VITALS: BP 134/78; PULSE 84; TEMP 36.8; O2SAT 95
[2017-07-23] MEDS: LOSARTAN POTASSIUM 25 MG TAB PO SCH (08:53)
[2017-07-23] MEDS: FLUOXETINE HCL 20 MG CAP PO SCH (08:53)
[2017-07-23] MEDS: RISPERIDONE 0.5 MG TAB PO PRN (08:53)
[2017-07-23] MEDS: CLOPIDOGREL BISULFATE 75 MG TAB PO SCH (08:53)
[2017-07-23] MEDS: HEPARIN SOD 5000 UNIT/0.5 ML CARP SQ SCH ×2 (08:57→22:09)
[2017-07-23 15:00] VITALS: BP 125/77; PULSE 66; TEMP 36.5; O2SAT 95
--- NOTE | 2017-07-23 19:08 | Progress Note ---
Subjective Date of Service: Jul 23, 2017. Subjective Pt evaluation today including: conversation w/ patient, physical exam, chart review, lab review, review of inpatient medication list Pain: none voiced PO Intake: normal during my visit he was sitting with a staff member playing number games and word games he denied any complaints of pain in any location specifically no cp, abd pain staff report good day overall Problem List Medical Problems: (1) Dementia Status: Acute Objective Vital Signs Date Time Temp Pulse Resp B/P (MAP) Pulse Ox O2 Delivery O2 Flow Rate FiO2 07/23/17 15:45 Room Air 07/23/17 15:00 36.5 66 16 125/77 (93) 95 07/23/17 08:00 Room Air 07/23/17 07:20 36.8 84 19 134/78 (96) 95 Room Air 07/22/17 22:47 36.5 68 16 127/82 (97) 93 Room Air 07/22/17 20:29 59 130/79 (96) 07/22/17 19:10 Room Air Physical Exam General Appearance: no apparent distress ENT: pharynx normal Neck: no JVD Respiratory/Chest: lungs clear, no respiratory distress, no accessory muscle use Cardiovascular: regular rate, rhythm, no gallop, no murmur Abdomen: normal bowel sounds, non tender, soft, no organomegaly Extremities: no pedal edema Assessment and Plan 77yo male with: 1. Advanced Alzheimer's dementia with behavioral disturbance - schedule risperdal 0.5mg at HS to improve sleep and help with check B1 and B12 levels in am 2. HTN - continue atenolol & losartan; BMP in am for stability. 3. Coronary artery disease - stable, without ischemic symptoms. Continue BB and plavix. 4. Hypothyroidism - continue levothyroxine 100 mcg - most recent TSH was compensated 5. Depression - continue fluoxetine 20 mg bid 6. DVT prophylaxis heparin bid dispo - SNF with dementia unit - appreciate social work efforts to secure placement Continued [facility] stay due to: home environment unsafe for pt Discharge planning: residential facility
[2017-07-23 22:04] VITALS: BP 126/84; PULSE 64
[2017-07-23] MEDS: DOCUSATE SODIUM/SENNA 50/8.6MG TAB PO SCH (22:13)
[2017-07-23] MEDS: RISPERIDONE ODT 0.5MG PO SCH (22:20)
[2017-07-23 22:45] VITALS: BP 145/83; PULSE 58; TEMP 36.7; O2SAT 92
[2017-07-24] MEDS: LEVOTHYROXINE 100 MCG TAB PO SCH (04:14)
[2017-07-24 08:18] VITALS: BP 149/87; PULSE 58; TEMP 36.5; O2SAT 91
[2017-07-24] MEDS: LOSARTAN POTASSIUM 25 MG TAB PO SCH (09:10)
[2017-07-24] MEDS: CLOPIDOGREL BISULFATE 75 MG TAB PO SCH (09:10)
[2017-07-24] MEDS: FLUOXETINE HCL 20 MG CAP PO SCH (09:11)
[2017-07-24] MEDS: HEPARIN SOD 5000 UNIT/0.5 ML CARP SQ SCH ×2 (09:12→21:14)
[2017-07-24 09:16] LABS: BUN/CREATININE RATIO 25.2 (10-20); CALCIUM 9.8 mg/dl (8.5-10.1); CREATININE 0.78 mg/dl (0.60-1.40); POTASSIUM 4.1 mmol/L (3.5-5.1)
[2017-07-24 15:18] VITALS: BP 136/83; PULSE 65; TEMP 36.7; O2SAT 97
[2017-07-24] MEDS: HALOPERIDOL 1 MG TAB PO PRN (16:59)
--- NOTE | 2017-07-24 20:33 | Progress Note ---
Subjective Date of Service: Jul 24, 2017. Subjective Pt evaluation today including: conversation w/ patient, physical exam, chart review, lab review, conversation w/ development consultant (manager social services) Pain: none voiced PO Intake: normal per staff Voiding: incontinence (occasional) slept all night with use of risperdal has not had any agitation today during my visit denied any pain (chest pain, abd pain) or other complaints otherwise unable to obtain ROS due to dementia Problem List Medical Problems: (1) Dementia Status: Acute Objective Vital Signs Date Time Temp Pulse Resp B/P (MAP) Pulse Ox O2 Delivery O2 Flow Rate FiO2 07/24/17 15:18 36.7 65 16 136/83 (100) 97 Room Air 07/24/17 15:15 Room Air 07/24/17 08:30 Room Air 07/24/17 08:18 36.5 58 18 149/87 (107) 91 Room Air 07/23/17 23:30 Room Air 07/23/17 22:45 36.7 58 18 145/83 (103) 92 Room Air 07/23/17 22:04 64 126/84 (98) Physical Exam General Appearance: no apparent distress ENT: pharynx normal Neck: no JVD Respiratory/Chest: lungs clear, no respiratory distress, no accessory muscle use Cardiovascular: regular rate, rhythm, no gallop, no murmur Abdomen: normal bowel sounds, non tender, soft, no organomegaly Extremities: no pedal edema Neurologic/Psychiatric: alert, + disoriented Skin: no rash Laboratory Results Last 24 Hours Test 07/24/17 08:43 Sodium Level 138 mmol/L Potassium Level 4.1 mmol/L Chloride Level 104 mmol/L Carbon Dioxide Level 26 mmol/L Anion Gap 8.0 mmol/L Blood Urea Nitrogen 20 mg/dl Creatinine 0.78 mg/dl Est Creatinine Clear Calc Drug Dose 83.3 ml/min Estimated GFR () 100.9 Estimated GFR (Non- 87.1 BUN/Creatinine Ratio 25.2 Random Glucose 94 mg/dl Calcium Level 9.8 mg/dl Vitamin B12 Level 565 pg/mL Assessment and Plan 77yo male with: 1. Advanced Alzheimer's dementia with behavioral disturbance - stable, improved , with use of scheduled HS risperdal 0.5mg. Cont PO haldol prn. b12 level normal recent TSH normal b1 level send/pending 2. HTN - continue atenolol & losartan; BMP stable. 3. Coronary artery disease - stable, without ischemic symptoms. Continue BB and plavix. 4. Hypothyroidism - continue levothyroxine 100 mcg - most recent TSH was compensated 5. Depression - continue fluoxetine 20 mg bid 6. DVT prophylaxis heparin bid dispo - SNF with dementia unit in [place], [place] to transfer there in the AM Continued [facility] stay due to: home environment unsafe for pt Discharge planning: snf facility
[2017-07-24 21:00] VITALS: BP 139/77; PULSE 77
[2017-07-24] MEDS: RISPERIDONE ODT 0.5MG PO SCH (21:08)
[2017-07-24] MEDS: DOCUSATE SODIUM/SENNA 50/8.6MG TAB PO SCH (21:09)
[2017-07-24 22:50] VITALS: BP 115/76; PULSE 61; TEMP 36.4; O2SAT 96
[2017-07-25] MEDS: LEVOTHYROXINE 100 MCG TAB PO SCH (04:10)
[2017-07-25 09:27] VITALS: BP 136/90; PULSE 69; TEMP 36.7; O2SAT 92
[2017-07-25] MEDS: LOSARTAN POTASSIUM 25 MG TAB PO SCH (09:31)
[2017-07-25] MEDS: CLOPIDOGREL BISULFATE 75 MG TAB PO SCH (09:31)
[2017-07-25] MEDS: FLUOXETINE HCL 20 MG CAP PO SCH (09:31)
[2017-07-25] MEDS ORDERED: RSPODT5 PO (09:32)
[2017-07-25] MEDS ORDERED: FLUO20CA35 PO (09:32)
[2017-07-25] MEDS ORDERED: ACET-1256 PO (09:32)
[2017-07-25] MEDS ORDERED: CZR25 PO (09:32)
[2017-07-25] MEDS ORDERED: RISP-99 PO (09:32)
[2017-07-25] MEDS ORDERED: ATEN-173 PO (09:32)
[2017-07-25] MEDS ORDERED: TRAM-10 PO (09:32)
[2017-07-25] MEDS: HEPARIN SOD 5000 UNIT/0.5 ML CARP SQ SCH (09:35)
--- NOTE | 2017-07-25 09:35 | Discharge Instructions ---
Discharge Instructions Date of Service Jul 25, 2017. Admission Reason for Admission: Advanced Dementia with behavioral disturbance Discharge Discharge Diagnosis / Problem: Advanced Alzheimer's Dementia Discharge Goals Goal(s): Learn about illness, Diagnostic testing, Therapeutic intervention Activity Recommendations Activity Level: Up Ad Cari, Assistance Required . Additional Information Patient informed of condition: No Advance Directives: Yes DNR: Yes Level of Care: Skilled Communicable Disease: No Prognosis: Deteriorating Oxygen at (LPM): none Nogueira Catheter: No Instructions / Follow-Up Instructions / Follow-Up From Dr. Mar, Hospitalist at [facility]: 1. recommend follow-up with medical driver of SNF within 48 hours 2. recommend follow-up with a geriatric neurologist within 3-4 weeks for dementia 3. recommend follow-up with a gas plant technician within 4-6 weeks for h/o CAD Current Hospital Diet Patient's current hospital diet: Low Sodium Diet (2gm Na) Discharge Diet Recommended Diet: Regular Diet Pending Studies Studies pending at discharge: yes List of pending studies: Thiamine (vitamin B1) level Physician Orders On Transfer Vital Signs: per SNF routine POLST Discussion: Not Applicable Medical Emergencies . Who to Call and When: Medical Emergencies: If at any time you feel your situation is an emergency, please call 911 immediately. . Non-Emergent Contact Non-Emergency issues call your: Specialist (SNF medical driver) Call Non-Emergent contact if: temperature is above 100.5, your pain is not controlled, your pain is worsening, you have any medication questions . . "Provider Documentation" section prepared by Diego Mar. . Core Measure Problem Core Measures: None
--- NOTE | 2017-07-25 09:56 | Discharge Summary ---
Discharge Summary Date of Service Jul 25, 2017. Discharge Summary Admission Date: Jul 11, 2017 at 11:48 Discharge Date: Jul 25, 2017 Discharge Disposition: detention facility ([place], [place]) Principal Diagnosis: Alzheimer's Dementia with behavioral disturbance Problems/Secondary Diagnoses: 1. HTN 2. CAD 3. Depression 4. Hypothyroidism 5. Paroxysmal Atrial fibrillation 6. GERD 7. Hyperlipidemia 8. Obstructive Sleep Apnea Consultations: PT, OT, speech Medication Reconciliation New Medications: Losartan Potassium (Losartan Potassium) 25 Mg Tab 25 MG PO QAM, #30 TAB 1 Refill Risperidone (Risperidone M-Tab) 0.5 Mg Christy 0.5 MG PO HS, #30 TABS 1 Refill Risperidone (Risperidone) 0.5 Mg Tab 0.25 MG PO Q8H PRN for agitation , #30 TAB 0 Refills Changed Medications: Acetaminophen (Tylenol) 500 Mg Tab 1000 MG PO Q8H PRN for Pain, #30 TAB 0 Refills (Changed from: 1 TAB; Q4; 10; Removed Days; Refills: ) Atenolol (Tenormin) 25 Mg Tab 25 MG PO BID, #60 TAB 1 Refill (Changed from: DAILY; Refills: ) Fluoxetine (Prozac) 20 Mg Cap 20 MG PO DAILY, #30 CAP 1 Refill (Changed from: Q12; Refills: ) Continued Medications: Aspirin (Aspirin Ec) 81 Mg Tab 81 MG PO DAILY Atorvastatin (Lipitor) 10 Mg Tab 10 MG PO DAILY, TAB Clopidogrel (Plavix) 75 Mg Tab 75 MG PO DAILY, TAB Docusate Sodium (Docusate Sodium) 100 Mg Cap 1 CAP PO BID PRN for Constipation, CAP Levothyroxine Sodium (Levothyroxine Sodium) 100 Mcg Tab 1 TAB PO DAILY for 90 Days, #90 TAB 3 Refills Memantine (Namenda) 10 Mg Tab 10 MG PO Q12, TAB Pantoprazole (Protonix) 40 Mg Tab 40 MG PO DAILY, #30 TAB Sennosides-Docusate Sodium (Senna Plus) 1 Tab Tab 1 TAB PO HS Tramadol (Ultram) 50 Mg Tab 50 MG PO Q4H PRN for Pain, #30 TAB 0 Refills (This prescription has been renewed ) Discontinued Medications: Lorazepam (Ativan) 0.5 Mg Tab 0.5 MG PO Q6H PRN for Anxiety, TAB Discharge Exam Physical Exam: General Appearance: WD/WN, no apparent distress ENT: pharynx normal Neck: no JVD Respiratory/Chest: lungs clear, no respiratory distress, no accessory muscle use Cardiovascular: regular rate, rhythm, no gallop, no murmur, normal peripheral pulses Abdomen / GI: normal bowel sounds, non tender, soft, no organomegaly Extremities: no pedal edema Neurologic/Psychiatric: no motor/sensory deficits, alert, normal mood/affect , + disoriented, + pertinent finding (oriented only to self; does not know the date, year, place or why he is in a specific location ) Skin: no rash Hospital Course HISTORY OF PRESENT ILLNESS: Mr Everett is a 77year old male with advanced Alzheimer's disease, CAD, HTN, and paroxysmal a. fib who presented to the ER at [facility] from [facility] after becoming combative with staff at [facility]. He was recently discharged from [facility] to [facility] with a primary diagnosis of advanced dementia. On review of outpatient records he has a diagnosis of Alzheimer's disease and was last seen by neurology in February 2017. At that time he was able to recall 2/3 objects in 5 minutes. He is and lives alone as per PCP note from November 2016. HOSPITAL COURSE: The patient's advanced Alzheimer's dementia with behavioral disturbance was treated with a combination of oral risperdal and PRN anti-psychotics by mouth. He was initiated on scheduled risperdal at bedtime with excellent results (good sleep, no sundowning, etc). He required just occasional oral haldol and/or risperdal during the daytime. No infectious issues were encountered during his stay. Vitamin B12 level was recently normal. TSH was 4. Vitamin B1 (thiamine) level was sent & was pending at time of discharge. He will be continued on his prozac as well as namenda for his depression/ dementia. Due to his advancing dementia SNF placement was recommended to his family and, after a thorough search, a bed was secured at [facility] in [place], [place] ( apparently close to where his daughter lives). He remains a DNR. Other medical problems including CAD, HTN, GERD, etc remained stable while here. He never had evidence of paroxysmal atrial fibrillation by way of exam. Upon arrival to [facility] would advise a routine EKG to ensure his QT interval is normal (in light of anti-psychotic usage). Since he will be living in a new city the following are recommended - 1. establishing care with a geriatric neurologist to follow his dementia 2. establishing care with a hand sizer to follow his CAD, HTN, etc. 3. perhaps even asaf-psychiatry to follow his behavior/anti-psychotic usage Total Time Spent: Greater than 30 minutes This includes examination of the patient, discharge planning, medication reconciliation, and communication with other providers. Discharge Instructions Please refer to the electronic Patient Visit Report (Discharge Instructions) for additional information. Follow-Up 1. see [facility] [employer] [facility] in [place] within 2 days of arrival 2. see a new hand sizer within 4-6 weeks; dx - CAD, PAF 3. see a new geriatric neurologist within 3-4 weeks; dx - advanced Alzheimer's Dementia Additional Copies To Yessi Leyva M.D.
[2017-07-25 10:07] VITALS: BP 136/90; PULSE 69; TEMP 36.7; O2SAT 92
== END 2017-07-25 13:21 | DRG 57 ==
LOC: EDBD 23:26 → C.EDA 23:27 → C.MSW 07-11 01:31 → ENRESERV 07-11 01:53 → OBSVTOIN 07-11 11:48
PROVIDERS: ADMIT Internal Medicine; ATTEND Internal Medicine
DX: G30.9 Alzheimer's disease, unspecified (principal); F05 Delirium due to known physiological condition; F02.80 Dementia in other diseases classified elsewhere, unspecified severity, without behavioral disturbance, psychotic disturbance, mood disturbance, and anxiety; I48.91 Unspecified atrial fibrillation; E03.9 Hypothyroidism, unspecified; K21.9 Gastro-esophageal reflux disease without esophagitis; E78.5 Hyperlipidemia, unspecified; G47.33 Obstructive sleep apnea (adult) (pediatric); Z79.82 Long term (current) use of aspirin